=== PATIENT | female | born 1990 | race American Indian/Alaskan Native ===

== ENCOUNTER 2022-06-16 12:09 | Inpatient (IN) | payer OTHER ==
[2022-06-16] MEDS ORDERED: MAGNESIUM SULFATE 40GM/1000ML 40 GM/1,000 ML BAG IV SCH (14:00)
[2022-06-16] MEDS ORDERED: MAGNESIUM SULFATE 4 GM/100 ML BAG IV NR (14:00)
[2022-06-16] MEDS: BETAMET ACET/BETAMET NA PH 6 MG/ML INJ 5 ML MDV IM SCH (14:28)
[2022-06-16] MEDS: LACTATED RINGERS 1,000 ML IV SCH (14:44)
[2022-06-16] MEDS ORDERED: hydrALAZINE 20 MG/1 ML INJ IV PRN (15:00)
[2022-06-16] MEDS ORDERED: DOCUSATE SODIUM 100 MG CAP PO PRN (17:24)
[2022-06-16] MEDS ORDERED: ACETAMINOPHEN 325 MG TAB PO PRN (17:24)
--- NOTE | 2022-06-16 17:32 | History and Physical Report ---
History of Present Illness Date of examination: 06/16/22 Date of admission: 06/16/22 12:47 Chief complaint: WALDO 09/15/22 @ 27 weeks gestation was sent From [facility] with severe growth restriction, obesity and elevated BP. BPP 4/8, LUCHO 1.6. HX of + AFP. History of present illness: See CC Past History Past Medical History: other (obesity) Past Surgical History: no surgical history Family/Genetic History: none - Obstetrical History Expected Date of Delivery: 09/15/22 Actual Gestation: 27 Week(s) 0 Day(s) : 1 Para: 0 Medications and Allergies Allergies Allergy/AdvReac Type Severity Reaction Status Date / Time No Known Allergies Allergy Verified 06/16/22 13:37 Home Medications Medication Instructions Recorded Confirmed Last Taken Type Aspirin 81 mg PO DAILY 06/16/22 06/16/22 06/16/22 History 81 MG Tablet 1 tab PO DAILY 06/16/22 06/16/22 06/16/22 History 1 TAB Vitamin D3 1 tab PO DAILY 06/16/22 06/16/22 Unknown History Active Meds: Active Medications Betamethasone Acet/Betameth SodPhos (Betamet Acet/Betamet Na Ph 6 Mg/Ml Inj 5 Ml Mdv) 12 mg IM Q24HR [facility] Last Admin: 06/16/22 14:28 Dose: 12 mg Hydralazine HCl (Hydralazine 20 Mg/1 Ml Inj) 5 mg IV Q30MIN PRN PRN Reason: Hypertension Lactated Ringer's (Lactated Ringers) 1,000 mls @ 75 mls/hr IV DIRECT DARY Last Admin: 06/16/22 14:44 Dose: 75 mls/hr Magnesium Sulfate (Magnesium Sulfate 40gm/1000ml) 40 gm in 1,000 mls @ 50 mls/hr IV DIRECT DARY Last Admin: 06/16/22 15:16 Dose: 2 gm/hr, 50 mls/hr Labetalol HCl (Labetalol 200 Mg Tab) 200 mg PO TID DARY Last Admin: 06/16/22 15:31 Dose: 200 mg Review of Systems All systems: negative - Vital Signs Vital signs: Vital Signs Pulse BP Pulse Ox 75 143/81 93 06/16/22 13:16 06/16/22 13:16 06/16/22 13:16 Temp Pulse Resp BP Pulse Ox 98.3 F 78 20 148/82 98 06/16/22 13:17 06/16/22 17:21 06/16/22 16:42 06/16/22 16:59 06/16/22 17:21 - Physical Exam Breasts: Positive: deferred Cardiovascular: Regular rate Lungs: Positive: Clear to auscultation Abdomen: Positive: soft Genitourinary (Female): Positive: normal external genitalia Vulva: both: normal Vagina: Positive: normal moisture Uterus: Positive: enlarged Anus/Rectum: Positive: normal perianal skin Extremities: Positive: normal Deep Tendon Reflex Grade: Normal +2 - Obstetrical Uterine Contraction Monitor Mode: External Uterine Contraction Pattern: Absent Uterine Contraction Intensity: Mild Results All other labs normal. Assessment and Plan A: 27 weeks with Oligohydramnios, Severe IUGR Gestational Hypertension/Preeclampsia Elevated MSAFP Morbid obesity P: Repeat BPP and Cord dopplers 24 hr urine Magnesium BMZ
[2022-06-16 18:53] LABS: Basophils # (Auto) 0.1 K/mm3 (0.0-0.1); Basophils % (Auto) 1.4 % (0.0-1.8); Eosinophils # (Auto) 0.1 K/mm3 (0.0-0.4); Eosinophils % (Auto) 1.8 % (0.0-4.3); Hematocrit 35.6 % (30.3-42.9); Lymphocytes # (Auto) 2.2 K/mm3 (1.2-5.4); Lymphocytes % (Auto) 30.4 % (13.4-35.0); Mean Corpuscular HGB Conc 34 % (30-34); Mean Corpuscular Volume 98 fl (79-97); Monocytes # (Auto) 0.6 K/mm3 (0.0-0.8); Monocytes % (Auto) 8.3 % (0.0-7.3); Platelet Count 262 K/mm3 (140-440); Red Blood Count 3.63 M/mm3 (3.65-5.03); Red Cell Distribution Width 11.9 % (13.2-15.2)
[2022-06-16 19:23] LABS: Alanine Aminotransferase 46 units/L (7-56); Blood Urea Nitrogen 4 mg/dL (7-17); Calcium 9.8 mg/dL (8.4-10.2); Hemolysis Index 11
[2022-06-16 19:30] LABS: BUN/Creatinine Ratio 8
--- NOTE | 2022-06-16 19:38 | Ultrasound Report ---
ULTRASOUND BIOPHYSICAL PROFILE INDICATION / CLINICAL INFORMATION: well-being. COMPARISON: None available. FINDINGS: BREATHING MOVEMENT = 2 GROSS BODY MOVEMENT = 2 TONE = 2 QUALITATIVE AMNIOTIC FLUID VOLUME = 2 TOTAL BIOPHYSICAL SCORE = 06/05 PRESENTATION: Cephalic. HEART RATE (beats per minute): 129 IMPRESSION: 1. biophysical profile = 06/05 Signer Name: Keshawn Cleveland MD Signed: 06/16/2022 7:33 PM Workstation Name: [id number]
[2022-06-17] MEDS: LACTATED RINGERS 1,000 ML IV SCH ×4 (03:35→23:49)
[2022-06-17] MEDS: PRENATAL VIT27-FE FUMARATE-FOLIC ACID VIT TAB PO SCH (09:10)
[2022-06-17] MEDS: BETAMET ACET/BETAMET NA PH 6 MG/ML INJ 5 ML MDV IM SCH (15:27)
--- NOTE | 2022-06-17 16:26 | Progress Note ---
Assessment and Plan A: Severe IUGR and Oligohydramnious @ 27.1 weeks Elevated MSAFP Breech presentation P: S/P Magnesium for neuro protection S/P BMZ 24hr will be completed at [address] Martinez called and plan of care discussed Will repeat BPP and doppler studies in am Continuous monitoring NICU consult Deliver if indicated Subjective Date of service: 06/17/22 Principal diagnosis: Severe IUGR, Oligohydramnious Interval history: S: No complaints of leaking fluid, reports good movement Objective - Constitutional Vitals: Vital Signs - 12hr 06/17/22 06/17/22 06/17/22 04:27 04:32 04:37 Temperature Pulse Rate 80 84 85 Respiratory Rate Blood Pressure 133/79 O2 Sat by Pulse 98 98 100 Oximetry O2 Sat by Pulse Oximetry [ Bilateral] 06/17/22 06/17/22 06/17/22 04:42 04:47 04:52 Temperature Pulse Rate 78 79 83 Respiratory Rate Blood Pressure O2 Sat by Pulse 98 98 97 Oximetry O2 Sat by Pulse Oximetry [ Bilateral] 06/17/22 06/17/22 06/17/22 04:57 04:59 05:02 Temperature Pulse Rate 83 90 83 Respiratory Rate Blood Pressure O2 Sat by Pulse 97 94 96 Oximetry O2 Sat by Pulse Oximetry [ Bilateral] 06/17/22 06/17/22 06/17/22 05:04 05:07 05:12 Temperature Pulse Rate 91 H 96 H 95 H Respiratory Rate Blood Pressure 139/84 O2 Sat by Pulse 93 100 98 Oximetry O2 Sat by Pulse Oximetry [ Bilateral] 06/17/22 06/17/22 06/17/22 05:17 05:22 05:27 Temperature Pulse Rate 93 H 79 83 Respiratory Rate Blood Pressure O2 Sat by Pulse 99 99 98 Oximetry O2 Sat by Pulse Oximetry [ Bilateral] 06/17/22 06/17/22 06/17/22 05:32 05:37 05:42 Temperature Pulse Rate 82 80 85 Respiratory Rate Blood Pressure 141/83 O2 Sat by Pulse 98 100 98 Oximetry O2 Sat by Pulse Oximetry [ Bilateral] 06/17/22 06/17/22 06/17/22 05:47 05:52 05:57 Temperature Pulse Rate 94 H 87 88 Respiratory Rate Blood Pressure O2 Sat by Pulse 99 98 98 Oximetry O2 Sat by Pulse Oximetry [ Bilateral] 06/17/22 06/17/22 06/17/22 06:02 06:07 06:12 Temperature Pulse Rate 90 90 92 H Respiratory Rate Blood Pressure 136/88 O2 Sat by Pulse 99 98 99 Oximetry O2 Sat by Pulse Oximetry [ Bilateral] 06/17/22 06/17/22 06/17/22 06:17 06:22 06:27 Temperature Pulse Rate 82 79 79 Respiratory Rate Blood Pressure O2 Sat by Pulse 98 98 99 Oximetry O2 Sat by Pulse Oximetry [ Bilateral] 06/17/22 06/17/22 06/17/22 06:32 06:37 06:42 Temperature Pulse Rate 76 79 82 Respiratory Rate Blood Pressure 131/72 O2 Sat by Pulse 97 97 98 Oximetry O2 Sat by Pulse Oximetry [ Bilateral] 06/17/22 06/17/22 06/17/22 06:47 06:51 06:52 Temperature Pulse Rate 80 87 79 Respiratory Rate Blood Pressure O2 Sat by Pulse 96 92 99 Oximetry O2 Sat by Pulse Oximetry [ Bilateral] 06/17/22 06/17/22 06/17/22 06:57 07:02 07:07 Temperature Pulse Rate 83 85 75 Respiratory Rate Blood Pressure 138/70 O2 Sat by Pulse 97 98 97 Oximetry O2 Sat by Pulse Oximetry [ Bilateral] 06/17/22 06/17/22 06/17/22 07:12 07:17 07:22 Temperature Pulse Rate 80 78 95 H Respiratory Rate Blood Pressure O2 Sat by Pulse 98 97 97 Oximetry O2 Sat by Pulse Oximetry [ Bilateral] 06/17/22 06/17/22 06/17/22 07:26 07:27 07:30 Temperature 98.6 F Pulse Rate 87 96 H Respiratory 20 Rate Blood Pressure O2 Sat by Pulse 94 100 Oximetry O2 Sat by Pulse 98 Oximetry [ Bilateral] 06/17/22 06/17/22 06/17/22 07:32 07:37 07:42 Temperature Pulse Rate 83 78 86 Respiratory Rate Blood Pressure O2 Sat by Pulse 99 98 98 Oximetry O2 Sat by Pulse Oximetry [ Bilateral] 06/17/22 06/17/22 06/17/22 07:47 07:52 07:57 Temperature Pulse Rate 88 79 90 Respiratory Rate Blood Pressure O2 Sat by Pulse 100 99 99 Oximetry O2 Sat by Pulse Oximetry [ Bilateral] 06/17/22 06/17/22 06/17/22 08:02 08:07 08:12 Temperature Pulse Rate 95 H 90 83 Respiratory Rate Blood Pressure O2 Sat by Pulse 98 99 100 Oximetry O2 Sat by Pulse Oximetry [ Bilateral] 06/17/22 06/17/22 06/17/22 08:17 08:22 08:27 Temperature Pulse Rate 92 H 80 82 Respiratory Rate Blood Pressure O2 Sat by Pulse 99 97 99 Oximetry O2 Sat by Pulse Oximetry [ Bilateral] 06/17/22 06/17/22 06/17/22 08:28 08:32 08:37 Temperature Pulse Rate 84 85 88 Respiratory Rate Blood Pressure 135/63 O2 Sat by Pulse 98 99 Oximetry O2 Sat by Pulse Oximetry [ Bilateral] 06/17/22 06/17/22 06/17/22 08:42 08:47 08:52 Temperature Pulse Rate 80 92 H 88 Respiratory Rate Blood Pressure O2 Sat by Pulse 98 99 98 Oximetry O2 Sat by Pulse Oximetry [ Bilateral] 06/17/22 06/17/22 06/17/22 08:57 09:02 09:07 Temperature Pulse Rate 90 87 90 Respiratory Rate Blood Pressure O2 Sat by Pulse 100 100 99 Oximetry O2 Sat by Pulse Oximetry [ Bilateral] 06/17/22 06/17/22 06/17/22 09:12 09:17 09:20 Temperature Pulse Rate 104 H 94 H 83 Respiratory Rate Blood Pressure O2 Sat by Pulse 100 100 94 Oximetry O2 Sat by Pulse Oximetry [ Bilateral] 06/17/22 06/17/22 06/17/22 09:22 09:27 09:28 Temperature Pulse Rate 87 82 76 Respiratory Rate Blood Pressure 139/82 O2 Sat by Pulse 98 97 Oximetry O2 Sat by Pulse Oximetry [ Bilateral] 06/17/22 06/17/22 06/17/22 09:32 09:37 09:39 Temperature Pulse Rate 81 87 85 Respiratory Rate Blood Pressure O2 Sat by Pulse 100 99 93 Oximetry O2 Sat by Pulse Oximetry [ Bilateral] 06/17/22 06/17/22 06/17/22 09:42 09:47 09:52 Temperature Pulse Rate 90 90 97 H Respiratory Rate Blood Pressure O2 Sat by Pulse 99 97 99 Oximetry O2 Sat by Pulse Oximetry [ Bilateral] 06/17/22 06/17/22 06/17/22 09:57 10:02 10:07 Temperature Pulse Rate 96 H 89 90 Respiratory Rate Blood Pressure O2 Sat by Pulse 99 99 99 Oximetry O2 Sat by Pulse Oximetry [ Bilateral] 06/17/22 06/17/22 06/17/22 10:12 10:17 10:22 Temperature Pulse Rate 91 H 87 86 Respiratory Rate Blood Pressure O2 Sat by Pulse 99 100 98 Oximetry O2 Sat by Pulse Oximetry [ Bilateral] 06/17/22 06/17/22 06/17/22 10:27 10:32 10:37 Temperature Pulse Rate 97 H 81 86 Respiratory Rate Blood Pressure 124/85 O2 Sat by Pulse 99 99 99 Oximetry O2 Sat by Pulse Oximetry [ Bilateral] 06/17/22 06/17/22 06/17/22 10:42 10:47 10:52 Temperature Pulse Rate 83 81 86 Respiratory Rate Blood Pressure O2 Sat by Pulse 98 98 96 Oximetry O2 Sat by Pulse Oximetry [ Bilateral] 06/17/22 06/17/22 06/17/22 10:57 11:02 11:07 Temperature Pulse Rate 83 82 87 Respiratory Rate Blood Pressure O2 Sat by Pulse 99 98 99 Oximetry O2 Sat by Pulse Oximetry [ Bilateral] 06/17/22 06/17/22 06/17/22 11:12 11:17 11:22 Temperature Pulse Rate 85 87 84 Respiratory Rate Blood Pressure O2 Sat by Pulse 99 98 98 Oximetry O2 Sat by Pulse Oximetry [ Bilateral] 06/17/22 06/17/22 06/17/22 11:27 11:28 11:32 Temperature Pulse Rate 86 82 86 Respiratory Rate Blood Pressure 126/69 O2 Sat by Pulse 98 98 Oximetry O2 Sat by Pulse Oximetry [ Bilateral] 06/17/22 06/17/22 06/17/22 11:37 11:42 11:47 Temperature Pulse Rate 87 84 83 Respiratory Rate Blood Pressure O2 Sat by Pulse 97 97 97 Oximetry O2 Sat by Pulse Oximetry [ Bilateral] 06/17/22 06/17/22 06/17/22 11:52 11:57 12:02 Temperature Pulse Rate 91 H 83 85 Respiratory Rate Blood Pressure O2 Sat by Pulse 99 96 99 Oximetry O2 Sat by Pulse Oximetry [ Bilateral] 06/17/22 06/17/22 06/17/22 12:06 12:07 12:12 Temperature Pulse Rate 93 H 85 85 Respiratory Rate Blood Pressure O2 Sat by Pulse 93 94 95 Oximetry O2 Sat by Pulse Oximetry [ Bilateral] 06/17/22 06/17/22 06/17/22 12:16 12:17 12:22 Temperature Pulse Rate 85 83 84 Respiratory Rate Blood Pressure O2 Sat by Pulse 94 98 98 Oximetry O2 Sat by Pulse Oximetry [ Bilateral] 06/17/22 06/17/22 06/17/22 12:25 12:27 12:28 Temperature Pulse Rate 82 83 79 Respiratory Rate Blood Pressure 127/63 O2 Sat by Pulse 94 96 Oximetry O2 Sat by Pulse Oximetry [ Bilateral] 06/17/22 06/17/22 06/17/22 12:31 12:32 12:37 Temperature Pulse Rate 81 82 82 Respiratory Rate Blood Pressure O2 Sat by Pulse 94 99 94 Oximetry O2 Sat by Pulse Oximetry [ Bilateral] 06/17/22 06/17/22 06/17/22 12:42 12:47 12:52 Temperature Pulse Rate 79 84 78 Respiratory Rate Blood Pressure O2 Sat by Pulse 97 98 98 Oximetry O2 Sat by Pulse Oximetry [ Bilateral] 06/17/22 06/17/22 06/17/22 12:57 13:02 13:07 Temperature Pulse Rate 79 82 83 Respiratory Rate Blood Pressure O2 Sat by Pulse 97 98 97 Oximetry O2 Sat by Pulse Oximetry [ Bilateral] 06/17/22 06/17/22 06/17/22 13:12 13:17 13:22 Temperature Pulse Rate 79 80 82 Respiratory Rate Blood Pressure O2 Sat by Pulse 96 99 97 Oximetry O2 Sat by Pulse Oximetry [ Bilateral] 06/17/22 06/17/22 06/17/22 13:27 13:28 13:32 Temperature Pulse Rate 85 85 81 Respiratory Rate Blood Pressure 130/72 O2 Sat by Pulse 99 97 Oximetry O2 Sat by Pulse Oximetry [ Bilateral] 06/17/22 06/17/22 06/17/22 13:37 13:42 13:47 Temperature Pulse Rate 80 80 78 Respiratory Rate Blood Pressure O2 Sat by Pulse 100 98 98 Oximetry O2 Sat by Pulse Oximetry [ Bilateral] 06/17/22 06/17/22 06/17/22 13:52 13:53 13:57 Temperature Pulse Rate 83 89 84 Respiratory Rate Blood Pressure O2 Sat by Pulse 98 89 97 Oximetry O2 Sat by Pulse Oximetry [ Bilateral] 06/17/22 06/17/22 06/17/22 13:58 14:02 14:05 Temperature Pulse Rate 81 88 82 Respiratory Rate Blood Pressure O2 Sat by Pulse 94 100 94 Oximetry O2 Sat by Pulse Oximetry [ Bilateral] 06/17/22 06/17/22 06/17/22 14:07 14:12 14:17 Temperature Pulse Rate 80 81 81 Respiratory Rate Blood Pressure O2 Sat by Pulse 98 99 97 Oximetry O2 Sat by Pulse Oximetry [ Bilateral] 06/17/22 06/17/22 06/17/22 14:20 14:22 14:27 Temperature Pulse Rate 85 84 84 Respiratory Rate Blood Pressure O2 Sat by Pulse 93 100 99 Oximetry O2 Sat by Pulse Oximetry [ Bilateral] 06/17/22 06/17/22 06/17/22 14:29 14:32 14:37 Temperature Pulse Rate 82 82 83 Respiratory Rate Blood Pressure 132/71 O2 Sat by Pulse 98 98 Oximetry O2 Sat by Pulse Oximetry [ Bilateral] 06/17/22 06/17/22 06/17/22 14:42 14:47 14:52 Temperature Pulse Rate 85 83 81 Respiratory Rate Blood Pressure O2 Sat by Pulse 98 98 99 Oximetry O2 Sat by Pulse Oximetry [ Bilateral] 06/17/22 06/17/22 06/17/22 14:57 15:21 15:26 Temperature Pulse Rate 88 82 79 Respiratory Rate Blood Pressure O2 Sat by Pulse 98 100 99 Oximetry O2 Sat by Pulse Oximetry [ Bilateral] 06/17/22 06/17/22 06/17/22 15:29 15:31 15:32 Temperature 98.4 F Pulse Rate 86 78 Respiratory 18 Rate Blood Pressure 126/60 O2 Sat by Pulse 99 Oximetry O2 Sat by Pulse Oximetry [ Bilateral] 06/17/22 06/17/22 06/17/22 15:36 15:41 15:46 Temperature Pulse Rate 97 H 87 99 H Respiratory Rate Blood Pressure O2 Sat by Pulse 98 99 99 Oximetry O2 Sat by Pulse Oximetry [ Bilateral] 06/17/22 06/17/22 06/17/22 15:51 15:56 16:01 Temperature Pulse Rate 82 93 H 100 H Respiratory Rate Blood Pressure O2 Sat by Pulse 100 99 98 Oximetry O2 Sat by Pulse Oximetry [ Bilateral] 06/17/22 06/17/22 06/17/22 16:06 16:11 16:16 Temperature Pulse Rate 95 H 91 H 93 H Respiratory Rate Blood Pressure O2 Sat by Pulse 100 98 99 Oximetry O2 Sat by Pulse Oximetry [ Bilateral] 06/17/22 16:21 Temperature Pulse Rate 91 H Respiratory Rate Blood Pressure O2 Sat by Pulse 98 Oximetry O2 Sat by Pulse Oximetry [ Bilateral] General appearance: Present: no acute distress - Cardiovascular Rhythm: regular - Genitourinary Female genitourinary: deferred - Labs CBC & Chem 7: 06/16/22 14:00 06/16/22 14:00 Labs: Abnormal lab results 06/16/22 06/16/22 06/17/22 Range/Units 14:00 14:00 03:55 RBC 3.63 L (3.65-5.03) M/mm3 MCV 98 H (79-97) fl MCH 33 H (28-32) pg RDW 11.9 L (13.2-15.2) % Potter % (Auto) 8.3 H (0.0-7.3) % BUN 4 L (7-17) mg/dL Creatinine 0.5 L (0.6-1.2) mg/dL Glucose 60 L (65-100) mg/dL Magnesium 4.70 H (1.7-2.3) mg/dL Medications & Allergies - Medications Allergies/Adverse Reactions: Allergies No Known Allergies Allergy (Verified 06/16/22 13:37) Home Medications: Home Medications Medication Instructions Recorded Confirmed Last Taken Type Aspirin 81 mg PO DAILY 06/16/22 06/16/22 06/16/22 History 81 MG Tablet 1 tab PO DAILY 06/16/22 06/16/22 06/16/22 History 1 TAB Vitamin D3 1 tab PO DAILY 06/16/22 06/16/22 Unknown History Active Medications: Generic Name Dose Route Start Last Admin Trade Name Marnie PRN Reason Stop Dose Admin Acetaminophen 650 mg 06/16/22 17:24 06/17/22 09:09 Acetaminophen 325 Mg Tab PO 650 mg Q4H PRN Administration Pain MILD(1-3)/Fever >100.5/MILLIGAN Betamethasone Acet/Betameth SodPhos 12 mg 06/16/22 14:00 06/17/22 15:27 Betamet Acet/Betamet Na Ph 6 Mg/Ml Inj 5 Ml Mdv IM 12 mg Q24HR DARY Administration Docusate Sodium 100 mg 06/16/22 17:24 Docusate Sodium 100 Mg Cap PO Q12H PRN Constipation Hydralazine HCl 5 mg 06/16/22 15:00 Hydralazine 20 Mg/1 Ml Inj IV Q30MIN PRN Hypertension Lactated Ringer's 1,000 mls @ 75 mls/hr 06/16/22 14:00 06/17/22 16:13 Lactated Ringers IV 75 mls/hr DIRECT DARY Administration Magnesium Sulfate 40 gm in 1,000 mls @ 50 mls/hr 06/16/22 14:00 06/16/22 15:16 Magnesium Sulfate 40gm/1000ml IV 2 gm/hr DIRECT DARY 50 mls/hr Administration 2 GM/HR Labetalol HCl 200 mg 06/16/22 14:55 06/17/22 09:10 Labetalol 200 Mg Tab PO 200 mg TID DARY Administration Multivitamins/Iron/Calcium 1 each 06/17/22 10:00 06/17/22 09:10 [id number] Fumarate-Folic Acid Vit Tab PO 1 each QDAY DARY Administration
[2022-06-18] MEDS: PRENATAL VIT27-FE FUMARATE-FOLIC ACID VIT TAB PO SCH (10:03)
--- NOTE | 2022-06-18 10:15 | Ultrasound Report ---
. ULTRASOUND BIOPHYSICAL PROFILE INDICATION / CLINICAL INFORMATION: Oligohydramnios. COMPARISON: 06/16/2022 FINDINGS: BREATHING MOVEMENT = 2 GROSS BODY MOVEMENT = 2 TONE = 2 QUALITATIVE AMNIOTIC FLUID VOLUME = 2 TOTAL BIOPHYSICAL SCORE = 06/05 PRESENTATION: Breech. HEART RATE (beats per minute): 135 IMPRESSION: 1. biophysical profile = 06/05 Signer Name: Matthew Verdugo MD Signed: 06/18/2022 10:10 AM Workstation Name: [id number]
--- NOTE | 2022-06-18 11:19 | Progress Note ---
Assessment and Plan A: Currently 27.2wks gestation IUGR, Oligohydramnious, Elevated MSAFP s/p magnesium sulfate/betamethasone, 24hr (300) P: Discussed patient Dr. Martinez repeat BPP/LUCHO/ doppler today Continuous FM per [facility] NICU consult Delv as indicated Subjective - Subjective Date of service: 06/18/22 (0745) Principal diagnosis: Severe IUGR, Oligohydramnious Patient reports: loss of fluid (denies), movement normal Objective - Vital Signs Vital Signs: Vital Signs - 12hr 06/17/22 06/17/22 06/17/22 23:21 23:26 23:31 Temperature Pulse Rate 89 89 89 Respiratory Rate Blood Pressure Blood Pressure [Left] O2 Sat by Pulse 96 97 96 Oximetry O2 Sat by Pulse Oximetry [ Bilateral] 06/17/22 06/17/22 06/17/22 23:36 23:41 23:46 Temperature Pulse Rate 93 H 93 H 86 Respiratory Rate Blood Pressure Blood Pressure [Left] O2 Sat by Pulse 99 96 97 Oximetry O2 Sat by Pulse Oximetry [ Bilateral] 06/17/22 06/17/22 06/17/22 23:51 23:52 23:56 Temperature Pulse Rate 105 H 88 79 Respiratory Rate Blood Pressure Blood Pressure [Left] O2 Sat by Pulse 97 93 96 Oximetry O2 Sat by Pulse Oximetry [ Bilateral] 06/18/22 06/18/22 06/18/22 00:01 00:05 00:06 Temperature Pulse Rate 87 88 78 Respiratory Rate Blood Pressure Blood Pressure [Left] O2 Sat by Pulse 97 92 99 Oximetry O2 Sat by Pulse Oximetry [ Bilateral] 06/18/22 06/18/22 06/18/22 00:11 00:13 00:16 Temperature Pulse Rate 80 92 H 86 Respiratory Rate Blood Pressure Blood Pressure [Left] O2 Sat by Pulse 95 94 95 Oximetry O2 Sat by Pulse Oximetry [ Bilateral] 06/18/22 06/18/22 06/18/22 00:20 00:21 00:25 Temperature Pulse Rate 86 91 H 99 H Respiratory Rate Blood Pressure Blood Pressure [Left] O2 Sat by Pulse 94 98 94 Oximetry O2 Sat by Pulse Oximetry [ Bilateral] 06/18/22 06/18/22 06/18/22 00:26 00:31 00:33 Temperature Pulse Rate 80 84 91 H Respiratory Rate Blood Pressure Blood Pressure [Left] O2 Sat by Pulse 99 98 94 Oximetry O2 Sat by Pulse Oximetry [ Bilateral] 06/18/22 06/18/22 06/18/22 00:36 00:39 00:41 Temperature Pulse Rate 91 H 82 78 Respiratory Rate Blood Pressure Blood Pressure [Left] O2 Sat by Pulse 97 93 99 Oximetry O2 Sat by Pulse Oximetry [ Bilateral] 06/18/22 06/18/22 06/18/22 00:45 00:46 00:50 Temperature Pulse Rate 81 79 82 Respiratory Rate Blood Pressure Blood Pressure [Left] O2 Sat by Pulse 92 99 94 Oximetry O2 Sat by Pulse Oximetry [ Bilateral] 06/18/22 06/18/22 06/18/22 00:51 00:55 00:56 Temperature Pulse Rate 82 93 H 92 H Respiratory Rate Blood Pressure Blood Pressure [Left] O2 Sat by Pulse 99 93 92 Oximetry O2 Sat by Pulse Oximetry [ Bilateral] 06/18/22 06/18/22 06/18/22 01:01 01:06 01:11 Temperature Pulse Rate 84 82 78 Respiratory Rate Blood Pressure Blood Pressure [Left] O2 Sat by Pulse 94 96 97 Oximetry O2 Sat by Pulse Oximetry [ Bilateral] 06/18/22 06/18/22 06/18/22 01:16 01:21 01:26 Temperature Pulse Rate 80 82 93 H Respiratory Rate Blood Pressure Blood Pressure [Left] O2 Sat by Pulse 96 96 93 Oximetry O2 Sat by Pulse Oximetry [ Bilateral] 06/18/22 06/18/22 06/18/22 01:31 01:36 01:37 Temperature Pulse Rate 93 H 81 78 Respiratory Rate Blood Pressure Blood Pressure [Left] O2 Sat by Pulse 96 99 92 Oximetry O2 Sat by Pulse Oximetry [ Bilateral] 06/18/22 06/18/22 06/18/22 01:41 01:43 01:46 Temperature Pulse Rate 81 91 H 79 Respiratory Rate Blood Pressure Blood Pressure [Left] O2 Sat by Pulse 96 94 99 Oximetry O2 Sat by Pulse Oximetry [ Bilateral] 06/18/22 06/18/22 06/18/22 01:51 02:15 02:20 Temperature Pulse Rate 77 70 81 Respiratory Rate Blood Pressure Blood Pressure [Left] O2 Sat by Pulse 98 98 98 Oximetry O2 Sat by Pulse Oximetry [ Bilateral] 08/21/22 08/21/22 08/21/22 02:25 02:30 02:35 Temperature Pulse Rate 80 76 76 Respiratory Rate Blood Pressure Blood Pressure [Left] O2 Sat by Pulse 98 98 98 Oximetry O2 Sat by Pulse Oximetry [ Bilateral] 06/18/22 06/18/22 06/18/22 02:40 02:45 02:50 Temperature Pulse Rate 77 78 74 Respiratory Rate Blood Pressure Blood Pressure [Left] O2 Sat by Pulse 99 98 99 Oximetry O2 Sat by Pulse Oximetry [ Bilateral] 06/18/22 06/18/22 06/18/22 02:55 03:00 03:05 Temperature Pulse Rate 74 74 78 Respiratory Rate Blood Pressure Blood Pressure [Left] O2 Sat by Pulse 99 98 98 Oximetry O2 Sat by Pulse Oximetry [ Bilateral] 06/18/22 06/18/22 06/18/22 03:10 03:15 03:20 Temperature 98.9 F Pulse Rate 75 82 84 Respiratory 18 Rate Blood Pressure Blood Pressure 134/70 [Left] O2 Sat by Pulse 97 98 98 Oximetry O2 Sat by Pulse Oximetry [ Bilateral] 06/18/22 06/18/22 06/18/22 05:20 05:25 07:44 Temperature 98.4 F Pulse Rate 77 78 83 Respiratory 12 Rate Blood Pressure Blood Pressure 133/73 [Left] O2 Sat by Pulse 98 98 97 Oximetry O2 Sat by Pulse 98 Oximetry [ Bilateral] 06/18/22 06/18/22 06/18/22 07:45 07:46 07:51 Temperature Pulse Rate 75 85 77 Respiratory Rate Blood Pressure 133/73 Blood Pressure [Left] O2 Sat by Pulse 98 99 Oximetry O2 Sat by Pulse Oximetry [ Bilateral] 06/18/22 06/18/22 06/18/22 07:56 08:01 08:06 Temperature Pulse Rate 78 76 76 Respiratory Rate Blood Pressure Blood Pressure [Left] O2 Sat by Pulse 98 98 99 Oximetry O2 Sat by Pulse Oximetry [ Bilateral] 06/18/22 06/18/22 06/18/22 08:11 08:16 08:21 Temperature Pulse Rate 83 72 72 Respiratory Rate Blood Pressure Blood Pressure [Left] O2 Sat by Pulse 98 97 97 Oximetry O2 Sat by Pulse Oximetry [ Bilateral] 06/18/22 06/18/22 06/18/22 08:24 08:26 08:29 Temperature Pulse Rate 74 76 73 Respiratory Rate Blood Pressure 139/72 Blood Pressure [Left] O2 Sat by Pulse 90 97 Oximetry O2 Sat by Pulse Oximetry [ Bilateral] 06/18/22 06/18/22 06/18/22 08:31 08:36 08:41 Temperature Pulse Rate 96 H 73 72 Respiratory Rate Blood Pressure Blood Pressure [Left] O2 Sat by Pulse 98 96 98 Oximetry O2 Sat by Pulse Oximetry [ Bilateral] 06/18/22 06/18/22 06/18/22 08:46 08:47 08:51 Temperature Pulse Rate 75 87 71 Respiratory Rate Blood Pressure 139/81 Blood Pressure [Left] O2 Sat by Pulse 98 98 Oximetry O2 Sat by Pulse Oximetry [ Bilateral] 06/18/22 06/18/22 06/18/22 08:56 09:01 09:05 Temperature Pulse Rate 70 75 77 Respiratory Rate Blood Pressure Blood Pressure [Left] O2 Sat by Pulse 96 98 94 Oximetry O2 Sat by Pulse Oximetry [ Bilateral] 06/18/22 06/18/22 06/18/22 09:06 09:11 09:16 Temperature Pulse Rate 72 74 68 Respiratory Rate Blood Pressure Blood Pressure [Left] O2 Sat by Pulse 99 99 99 Oximetry O2 Sat by Pulse Oximetry [ Bilateral] 06/18/22 06/18/22 06/18/22 09:21 09:26 09:28 Temperature Pulse Rate 77 75 78 Respiratory Rate Blood Pressure 128/66 Blood Pressure [Left] O2 Sat by Pulse 98 99 Oximetry O2 Sat by Pulse Oximetry [ Bilateral] 06/18/22 06/18/22 06/18/22 09:31 09:36 09:41 Temperature Pulse Rate 70 68 80 Respiratory Rate Blood Pressure Blood Pressure [Left] O2 Sat by Pulse 99 99 97 Oximetry O2 Sat by Pulse Oximetry [ Bilateral] 06/18/22 06/18/22 06/18/22 09:46 09:51 10:36 Temperature Pulse Rate 81 84 Respiratory Rate Blood Pressure Blood Pressure [Left] O2 Sat by Pulse 98 98 94 Oximetry O2 Sat by Pulse Oximetry [ Bilateral] 06/18/22 06/18/22 06/18/22 10:37 10:42 10:46 Temperature Pulse Rate 96 H 94 H 80 Respiratory Rate Blood Pressure Blood Pressure [Left] O2 Sat by Pulse 98 98 92 Oximetry O2 Sat by Pulse Oximetry [ Bilateral] 06/18/22 06/18/22 06/18/22 10:47 10:52 10:57 Temperature Pulse Rate 74 75 81 Respiratory Rate Blood Pressure Blood Pressure [Left] O2 Sat by Pulse 99 99 98 Oximetry O2 Sat by Pulse Oximetry [ Bilateral] 06/18/22 06/18/22 06/18/22 11:02 11:03 11:07 Temperature Pulse Rate 73 72 77 Respiratory Rate Blood Pressure Blood Pressure [Left] O2 Sat by Pulse 98 94 99 Oximetry O2 Sat by Pulse Oximetry [ Bilateral] 06/18/22 06/18/22 11:12 11:17 Temperature Pulse Rate 78 80 Respiratory Rate Blood Pressure Blood Pressure [Left] O2 Sat by Pulse 99 98 Oximetry O2 Sat by Pulse Oximetry [ Bilateral] - Exam Breasts: deferred Cardiovascular: Regular rate Lungs: Clear to auscultation Abdomen: Present: normal appearance, soft Uterus: Present: normal (enlarge) FHR: category 1 Uterine Contraction Monitor Mode: External Uterine Contraction Pattern: Absent Extremities: normal Deep Tendon Reflex Grade: Normal +2 - Labs Labs: Abnormal Labs 06/16/22 06/16/22 06/16/22 14:00 14:00 16:42 RBC 3.63 L MCV 98 H MCH 33 H RDW 11.9 L [place] % (Auto) 8.3 H BUN 4 L Creatinine 0.5 L Glucose 60 L Magnesium Ur Total Protein 24 Hr 301.00 H 06/17/22 03:55 RBC MCV MCH RDW [place] % (Auto) BUN Creatinine Glucose Magnesium 4.70 H Ur Total Protein 24 Hr Laboratory Results - last 24 hr 06/16/22 16:42 Urine Total Volume 4300 Ur Total Protein 24 Hr 301.00 H Urine Total Protein 7 - Results US- obstetric: pending (ob ultrasound LUCHO/BPP/ doppler)
[2022-06-18] MEDS: LACTATED RINGERS 1,000 ML IV SCH (12:51)
--- NOTE | 2022-06-18 13:16 | Ultrasound Report ---
ULTRASOUND OBSTETRIC LIMITED INDICATION / CLINICAL INFORMATION: IUGR, OLIGOHYDRAMNIOS. Clinical Gestational Age (GA) in weeks, days: 27 weeks 2 days TECHNIQUE: Transabdominal. COMPARISON: 06/16/2022 FINDINGS: HEART RATE (beats per minute): 139 AMNIOTIC FLUID INDEX (cm) = 4.8 (normal = 7-24 cm) PRESENTATION: Breech. ADDITIONAL FINDINGS: None. IMPRESSION: Single live intrauterine . Findings of oligohydramnios with amniotic fluid index measuring 4 .8 cm. Signer Name: Merrill Bose MD Signed: 06/18/2022 1:11 PM Workstation Name: [id number]
[2022-06-18] MEDS: BETAMET ACET/BETAMET NA PH 6 MG/ML INJ 5 ML MDV IM SCH (15:19)
--- NOTE | 2022-06-18 19:21 | Event Note ---
Date: 06/18/22 (446) Re-evaluated patient, w/o complaints at this time. Baby on and off monitoring, no cx noted or felt by patient. Reviewed bpp/LUCHO with Dr. Martinez, informed still waiting on doppler ( morning Tech does not know how to perform, states next shift will do). fetus breech, LUCHO 4.8, BPP 06/05.
--- NOTE | 2022-06-18 19:57 | Consultation ---
History of Present Illness - Reason for Consult Consult date: 06/18/22 Possible premature delivery Requesting physician: RAJESH GASTELUM - History of Present Illness I was consulted by the Obs service for a consultation on the possibilities for Ms. Ahn, a primigravida, who is carrying a 26 week fetus and may be at risk of premature labor/surgical delivery. I met with her along with her nurse, and we together went over the the history, current status, current treatment options, and the prognosis for a 26 week premature . She was very emotional, and appropriately anxious about the prognosis of the fetus. We discussed (using non-medical words as far as possible) the following points: 1. Ms. Ahn's current medical records show oligohydramnios, pre-eclampsia, elevated MSAFP, and morbid obesity. These conditions increase the baby's risk, above that expected for the degree of prematurity, of breathing difficulties, SGA, and low or variable blood sugars at least in the first 72 hours. High MSAFP levels have been associated with neural tube defects, abdominal wall defects, and duodenal defects, but we did not emphasize these problems because the her abdominal ultrasound scans do not mention any such findings. 2. She emphasized that she is a pentecostalism person and would like to do everything possible for the baby. We discussed that if the labor/surgical delivery happens, every week is associated with a significant increase in survival. Even now, she should be very cautiously optimistic. We will be there at delivery, will intubate the infant and carry the to the NICU in a safe fashion, and then she will be free to visit anytime except possibly at staff changeover times. The baby will likely need multiple medicines to improve lung inflation, antibiotics, intravenous fluids, and possibly to maintain blood pressure. We will start feeding through a tube as soon as it looks safe. She will need support for many weeks and will need to be in the NICU. 3. She expressed concern about the risk of cerebral palsy. I conveyed to her two things: (a) that the risk of cerebral palsy is strongly associated with intraventricular hemorrhage, which occurs most often in the first 48-72 hours. We can get daily head ultrasounds, and if there are abnormalities, we can discuss various options, including that of withdrawal of care. (b) in many infants, the possibility of cerebral palsy cannot be predicted perfectly, but then we accept it and do the best we can in follow-up care. We are happy to provide further information as needed. Thank you giving us the opportunity to participate in her care. Jamin Omer MD Medications and Allergies Allergies Allergy/AdvReac Type Severity Reaction Status Date / Time No Known Allergies Allergy Verified 06/16/22 13:37 Home Medications Medication Instructions Recorded Confirmed Last Taken Type Aspirin 81 mg PO DAILY 06/16/22 06/16/22 06/16/22 History 81 MG Tablet 1 tab PO DAILY 06/16/22 06/16/22 06/16/22 History 1 TAB Vitamin D3 1 tab PO DAILY 06/16/22 06/16/22 Unknown History Active Meds: Active Medications Acetaminophen (Acetaminophen 325 Mg Tab) 650 mg PO Q4H PRN PRN Reason: Pain MILD(1-3)/Fever >100.5/MILLIGAN Last Admin: 06/17/22 09:09 Dose: 650 mg Betamethasone Acet/Betameth SodPhos (Betamet Acet/Betamet Na Ph 6 Mg/Ml Inj 5 Ml Mdv) 12 mg IM Q24HR [facility] Last Admin: 06/18/22 15:19 Dose: 12 mg Docusate Sodium (Docusate Sodium 100 Mg Cap) 100 mg PO Q12H PRN PRN Reason: Constipation Hydralazine HCl (Hydralazine 20 Mg/1 Ml Inj) 5 mg IV Q30MIN PRN PRN Reason: Hypertension Magnesium Sulfate (Magnesium Sulfate 40gm/1000ml) 40 gm in 1,000 mls @ 50 mls/hr IV DIRECT [place] Last Infusion: 06/17/22 16:10 Dose: Infused Lactated Ringer's (Lactated Ringers) 1,000 mls @ 80 mls/hr IV DIRECT [facility] Last Admin: 06/18/22 12:51 Dose: 80 mls/hr Labetalol HCl (Labetalol 200 Mg Tab) 200 mg PO TID [facility] Last Admin: 06/18/22 14:23 Dose: 200 mg Multivitamins/Iron/Calcium ( Umi99-Ey Fumarate-Folic Acid Vit Tab) 1 each PO QDAY [facility] Last Admin: 06/18/22 10:03 Dose: 1 each Exam - Constitutional Vitals: Temp Pulse Resp BP Pulse Ox 98.5 F 96 H 17 132/73 98 06/18/22 19:22 06/18/22 19:49 06/18/22 14:24 06/18/22 19:25 06/18/22 19:49 Results - Labs CBC & Chem 7: 06/16/22 14:00 06/16/22 14:00
--- NOTE | 2022-06-18 21:15 | Ultrasound Report ---
ULTRASOUND OB VELOCIMETRY UMBILICAL ARTERY HISTORY: Severe IUGR TECHNIQUE: Transabdominal ultrasound with color and spectral Doppler imaging COMPARISON: 06/18/2022 FINDINGS: 3 segments of the umbilical cord were evaluated. heart rate measures 155 bpm. There is absent e nd diastolic flow. Free loop pulsatility indices measure 1.95, 1.60, and 2.01 with average pulsatility index of 1.85. IMPRESSION: Absent end diastolic flow, suggestive of placental insufficiency. Signer Name: Matthew Verdugo MD Signed: 06/18/2022 9:10 PM Workstation Name: [id number]
[2022-06-19] MEDS: LACTATED RINGERS 1,000 ML IV SCH (02:38)
[2022-06-19] MEDS: PRENATAL VIT27-FE FUMARATE-FOLIC ACID VIT TAB PO SCH (10:47)
--- NOTE | 2022-06-19 13:35 | Progress Note ---
Assessment and Plan Severe IUGR with oligo, BPP 6/8, LUCHO 4.8 improved from admit LUCHO 1.8; S/P steroids and mag sulfate neuroprotection, and abnormal u/s with absent diastolic flow on dopplers, on 06/18/[address] Duffy with these new findings, and he recommends delivery via c/section 2. Pt told that she will need primary c/section later this evening 8hrs after her last meal per anesthesia 3. All questions encouraged and answered, will continue current EFM and delivery emergently if NRFHR Subjective Date of service: 06/19/22 Principal diagnosis: Severe IUGR, Oligohydramnious, absent end diastolic flow Interval history: pt denies headache or blurry vision, pt admits to LOF 1wk ago and no ROM plus done on admission. PT denies feeling contractions. Pt just ate hamburger for lunch.. Denies vag bleed, admits to movement. Objective - Constitutional Vitals: Vital Signs - 12hr 06/19/22 06/19/22 06/19/22 01:29 01:34 01:39 Temperature Pulse Rate 73 71 73 Respiratory Rate Blood Pressure Blood Pressure [Left] O2 Sat by Pulse 96 96 97 Oximetry O2 Sat by Pulse Oximetry [ Bilateral] 06/19/22 06/19/22 06/19/22 01:41 01:44 01:49 Temperature Pulse Rate 82 74 73 Respiratory Rate Blood Pressure Blood Pressure [Left] O2 Sat by Pulse 94 97 97 Oximetry O2 Sat by Pulse Oximetry [ Bilateral] 06/19/22 06/19/22 06/19/22 01:54 01:59 02:04 Temperature Pulse Rate 74 73 81 Respiratory Rate Blood Pressure Blood Pressure [Left] O2 Sat by Pulse 96 97 96 Oximetry O2 Sat by Pulse Oximetry [ Bilateral] 06/19/22 06/19/22 06/19/22 02:09 02:14 02:19 Temperature Pulse Rate 76 76 75 Respiratory Rate Blood Pressure Blood Pressure [Left] O2 Sat by Pulse 95 96 96 Oximetry O2 Sat by Pulse Oximetry [ Bilateral] 06/19/22 06/19/22 06/19/22 02:24 02:32 02:33 Temperature 98.1 F Pulse Rate 75 83 79 Respiratory Rate Blood Pressure 138/83 Blood Pressure [Left] O2 Sat by Pulse 97 96 Oximetry O2 Sat by Pulse Oximetry [ Bilateral] 06/19/22 06/19/22 06/19/22 02:38 02:43 02:48 Temperature Pulse Rate 81 75 77 Respiratory Rate Blood Pressure Blood Pressure [Left] O2 Sat by Pulse 98 97 98 Oximetry O2 Sat by Pulse Oximetry [ Bilateral] 06/19/22 06/19/22 06/19/22 02:53 02:58 03:03 Temperature Pulse Rate 77 79 74 Respiratory Rate Blood Pressure Blood Pressure [Left] O2 Sat by Pulse 98 97 97 Oximetry O2 Sat by Pulse Oximetry [ Bilateral] 06/19/22 06/19/22 06/19/22 03:08 03:13 03:18 Temperature Pulse Rate 74 72 75 Respiratory Rate Blood Pressure Blood Pressure [Left] O2 Sat by Pulse 97 96 96 Oximetry O2 Sat by Pulse Oximetry [ Bilateral] 06/19/22 06/19/22 06/19/22 03:23 03:28 03:33 Temperature Pulse Rate 79 74 73 Respiratory Rate Blood Pressure Blood Pressure [Left] O2 Sat by Pulse 97 97 98 Oximetry O2 Sat by Pulse Oximetry [ Bilateral] 06/19/22 06/19/22 06/19/22 03:38 03:43 03:48 Temperature Pulse Rate 71 75 79 Respiratory Rate Blood Pressure Blood Pressure [Left] O2 Sat by Pulse 98 98 98 Oximetry O2 Sat by Pulse Oximetry [ Bilateral] 06/19/22 06/19/22 06/19/22 03:53 03:58 04:03 Temperature Pulse Rate 79 73 78 Respiratory Rate Blood Pressure Blood Pressure [Left] O2 Sat by Pulse 98 97 96 Oximetry O2 Sat by Pulse Oximetry [ Bilateral] 06/19/22 06/19/22 06/19/22 04:08 04:13 04:18 Temperature Pulse Rate 77 78 68 Respiratory Rate Blood Pressure Blood Pressure [Left] O2 Sat by Pulse 97 97 97 Oximetry O2 Sat by Pulse Oximetry [ Bilateral] 06/19/22 06/19/22 06/19/22 04:23 04:28 04:33 Temperature Pulse Rate 75 72 74 Respiratory Rate Blood Pressure Blood Pressure [Left] O2 Sat by Pulse 97 96 94 Oximetry O2 Sat by Pulse Oximetry [ Bilateral] 06/19/22 06/19/22 06/19/22 04:38 04:43 04:48 Temperature Pulse Rate 73 69 68 Respiratory Rate Blood Pressure Blood Pressure [Left] O2 Sat by Pulse 97 99 98 Oximetry O2 Sat by Pulse Oximetry [ Bilateral] 06/19/22 06/19/22 06/19/22 04:51 04:53 04:57 Temperature Pulse Rate 74 70 75 Respiratory Rate Blood Pressure Blood Pressure [Left] O2 Sat by Pulse 94 96 94 Oximetry O2 Sat by Pulse Oximetry [ Bilateral] 06/19/22 06/19/22 06/19/22 04:58 05:02 05:03 Temperature Pulse Rate 73 70 77 Respiratory Rate Blood Pressure Blood Pressure [Left] O2 Sat by Pulse 95 94 95 Oximetry O2 Sat by Pulse Oximetry [ Bilateral] 06/19/22 06/19/22 06/19/22 05:07 05:08 05:12 Temperature Pulse Rate 81 75 65 Respiratory Rate Blood Pressure Blood Pressure [Left] O2 Sat by Pulse 94 99 93 Oximetry O2 Sat by Pulse Oximetry [ Bilateral] 06/19/22 06/19/22 06/19/22 05:13 05:22 05:27 Temperature 98.2 F Pulse Rate 70 72 69 Respiratory Rate Blood Pressure Blood Pressure [Left] O2 Sat by Pulse 96 99 99 Oximetry O2 Sat by Pulse Oximetry [ Bilateral] 06/19/22 06/19/22 06/19/22 05:30 05:32 05:37 Temperature Pulse Rate 76 66 66 Respiratory Rate Blood Pressure 140/84 Blood Pressure [Left] O2 Sat by Pulse 97 98 Oximetry O2 Sat by Pulse Oximetry [ Bilateral] 06/19/22 06/19/22 06/19/22 05:42 05:47 05:51 Temperature Pulse Rate 72 74 78 Respiratory Rate Blood Pressure Blood Pressure [Left] O2 Sat by Pulse 97 99 92 Oximetry O2 Sat by Pulse Oximetry [ Bilateral] 06/19/22 06/19/22 06/19/22 05:52 05:57 05:58 Temperature Pulse Rate 72 71 82 Respiratory Rate Blood Pressure Blood Pressure [Left] O2 Sat by Pulse 95 98 91 Oximetry O2 Sat by Pulse Oximetry [ Bilateral] 06/19/22 06/19/22 06/19/22 06:02 06:04 06:07 Temperature Pulse Rate 65 69 74 Respiratory Rate Blood Pressure Blood Pressure [Left] O2 Sat by Pulse 99 92 96 Oximetry O2 Sat by Pulse Oximetry [ Bilateral] 06/19/22 06/19/22 06/19/22 06:09 06:12 06:17 Temperature Pulse Rate 76 70 72 Respiratory Rate Blood Pressure Blood Pressure [Left] O2 Sat by Pulse 93 99 95 Oximetry O2 Sat by Pulse Oximetry [ Bilateral] 06/19/22 06/19/22 06/19/22 06:22 06:26 06:27 Temperature Pulse Rate 70 76 72 Respiratory Rate Blood Pressure Blood Pressure [Left] O2 Sat by Pulse 99 94 96 Oximetry O2 Sat by Pulse Oximetry [ Bilateral] 06/19/22 06/19/22 06/19/22 06:32 06:33 06:37 Temperature Pulse Rate 71 77 73 Respiratory Rate Blood Pressure Blood Pressure [Left] O2 Sat by Pulse 97 93 96 Oximetry O2 Sat by Pulse Oximetry [ Bilateral] 06/19/22 06/19/22 06/19/22 06:39 06:42 06:44 Temperature Pulse Rate 73 89 76 Respiratory Rate Blood Pressure Blood Pressure [Left] O2 Sat by Pulse 93 96 92 Oximetry O2 Sat by Pulse Oximetry [ Bilateral] 06/19/22 06/19/22 06/19/22 06:47 06:50 06:52 Temperature Pulse Rate 71 79 66 Respiratory Rate Blood Pressure Blood Pressure [Left] O2 Sat by Pulse 95 91 95 Oximetry O2 Sat by Pulse Oximetry [ Bilateral] 06/19/22 06/19/22 06/19/22 06:57 06:58 07:02 Temperature Pulse Rate 79 71 82 Respiratory Rate Blood Pressure Blood Pressure [Left] O2 Sat by Pulse 96 92 93 Oximetry O2 Sat by Pulse Oximetry [ Bilateral] 06/19/22 06/19/22 06/19/22 07:04 07:07 07:10 Temperature Pulse Rate 84 75 88 Respiratory Rate Blood Pressure Blood Pressure [Left] O2 Sat by Pulse 90 97 93 Oximetry O2 Sat by Pulse Oximetry [ Bilateral] 06/19/22 06/19/22 06/19/22 07:12 07:16 07:17 Temperature Pulse Rate 87 77 76 Respiratory Rate Blood Pressure Blood Pressure [Left] O2 Sat by Pulse 91 94 96 Oximetry O2 Sat by Pulse Oximetry [ Bilateral] 06/19/22 06/19/22 06/19/22 07:22 07:27 07:32 Temperature Pulse Rate 77 72 66 Respiratory Rate Blood Pressure Blood Pressure [Left] O2 Sat by Pulse 96 96 97 Oximetry O2 Sat by Pulse Oximetry [ Bilateral] 06/19/22 06/19/22 06/19/22 07:37 07:42 07:47 Temperature Pulse Rate 69 68 66 Respiratory Rate Blood Pressure Blood Pressure [Left] O2 Sat by Pulse 97 98 98 Oximetry O2 Sat by Pulse Oximetry [ Bilateral] 06/19/22 06/19/22 06/19/22 07:52 07:57 08:02 Temperature Pulse Rate 74 72 87 Respiratory Rate Blood Pressure Blood Pressure [Left] O2 Sat by Pulse 100 97 96 Oximetry O2 Sat by Pulse Oximetry [ Bilateral] 06/19/22 06/19/22 06/19/22 08:07 08:12 08:17 Temperature Pulse Rate 67 71 71 Respiratory Rate Blood Pressure Blood Pressure [Left] O2 Sat by Pulse 97 97 96 Oximetry O2 Sat by Pulse Oximetry [ Bilateral] 06/19/22 06/19/22 06/19/22 08:22 08:25 08:27 Temperature 98.3 F Pulse Rate 83 79 79 Respiratory 16 Rate Blood Pressure 138/90 Blood Pressure 138/90 [Left] O2 Sat by Pulse 97 98 99 Oximetry O2 Sat by Pulse 98 Oximetry [ Bilateral] 06/19/22 06/19/22 06/19/22 08:32 08:37 08:42 Temperature Pulse Rate 88 78 79 Respiratory Rate Blood Pressure Blood Pressure [Left] O2 Sat by Pulse 99 99 99 Oximetry O2 Sat by Pulse Oximetry [ Bilateral] 06/19/22 06/19/22 06/19/22 08:47 08:52 08:57 Temperature Pulse Rate 85 86 79 Respiratory Rate Blood Pressure Blood Pressure [Left] O2 Sat by Pulse 98 99 98 Oximetry O2 Sat by Pulse Oximetry [ Bilateral] 06/19/22 06/19/22 06/19/22 09:02 09:07 09:12 Temperature Pulse Rate 81 74 82 Respiratory Rate Blood Pressure Blood Pressure [Left] O2 Sat by Pulse 99 98 98 Oximetry O2 Sat by Pulse Oximetry [ Bilateral] 06/19/22 06/19/22 06/19/22 09:17 09:22 09:27 Temperature Pulse Rate 80 79 82 Respiratory Rate Blood Pressure Blood Pressure [Left] O2 Sat by Pulse 99 98 99 Oximetry O2 Sat by Pulse Oximetry [ Bilateral] 06/19/22 06/19/22 06/19/22 09:32 09:37 10:02 Temperature Pulse Rate 85 80 85 Respiratory Rate Blood Pressure Blood Pressure [Left] O2 Sat by Pulse 98 99 99 Oximetry O2 Sat by Pulse Oximetry [ Bilateral] 06/19/22 06/19/22 06/19/22 10:07 10:12 10:17 Temperature Pulse Rate 76 67 68 Respiratory Rate Blood Pressure Blood Pressure [Left] O2 Sat by Pulse 98 98 99 Oximetry O2 Sat by Pulse Oximetry [ Bilateral] 06/19/22 06/19/22 06/19/22 10:22 10:27 10:32 Temperature Pulse Rate 72 70 74 Respiratory Rate Blood Pressure Blood Pressure [Left] O2 Sat by Pulse 100 98 98 Oximetry O2 Sat by Pulse Oximetry [ Bilateral] 06/19/22 06/19/22 06/19/22 10:37 10:42 10:47 Temperature Pulse Rate 72 68 70 Respiratory Rate Blood Pressure Blood Pressure [Left] O2 Sat by Pulse 98 99 99 Oximetry O2 Sat by Pulse Oximetry [ Bilateral] 06/19/22 06/19/22 06/19/22 10:52 10:57 11:02 Temperature Pulse Rate 76 75 67 Respiratory Rate Blood Pressure Blood Pressure [Left] O2 Sat by Pulse 98 99 99 Oximetry O2 Sat by Pulse Oximetry [ Bilateral] 06/19/22 06/19/22 06/19/22 11:07 11:12 11:17 Temperature Pulse Rate 70 74 61 Respiratory Rate Blood Pressure Blood Pressure [Left] O2 Sat by Pulse 99 98 98 Oximetry O2 Sat by Pulse Oximetry [ Bilateral] 06/19/22 06/19/22 06/19/22 11:22 11:27 11:28 Temperature Pulse Rate 68 68 65 Respiratory Rate Blood Pressure Blood Pressure [Left] O2 Sat by Pulse 99 100 94 Oximetry O2 Sat by Pulse Oximetry [ Bilateral] 06/19/22 06/19/22 06/19/22 11:32 11:37 11:42 Temperature Pulse Rate 67 70 70 Respiratory Rate Blood Pressure Blood Pressure [Left] O2 Sat by Pulse 99 99 98 Oximetry O2 Sat by Pulse Oximetry [ Bilateral] 06/19/22 06/19/22 06/19/22 11:47 11:52 11:57 Temperature Pulse Rate 67 72 83 Respiratory Rate Blood Pressure Blood Pressure [Left] O2 Sat by Pulse 99 98 99 Oximetry O2 Sat by Pulse Oximetry [ Bilateral] 06/19/22 06/19/22 06/19/22 12:02 12:05 12:07 Temperature Pulse Rate 76 37 L 75 Respiratory Rate Blood Pressure Blood Pressure [Left] O2 Sat by Pulse 99 91 98 Oximetry O2 Sat by Pulse Oximetry [ Bilateral] 06/19/22 06/19/22 06/19/22 12:12 12:17 12:22 Temperature Pulse Rate 81 88 97 H Respiratory Rate Blood Pressure Blood Pressure [Left] O2 Sat by Pulse 97 98 99 Oximetry O2 Sat by Pulse Oximetry [ Bilateral] 06/19/22 06/19/22 06/19/22 12:25 12:26 12:27 Temperature 98.5 F Pulse Rate 93 H 96 H 100 H Respiratory 18 Rate Blood Pressure 141/78 Blood Pressure 141/78 [Left] O2 Sat by Pulse 98 99 Oximetry O2 Sat by Pulse Oximetry [ Bilateral] 06/19/22 06/19/22 06/19/22 12:32 12:37 12:42 Temperature Pulse Rate 98 H 97 H 91 H Respiratory Rate Blood Pressure Blood Pressure [Left] O2 Sat by Pulse 98 98 99 Oximetry O2 Sat by Pulse Oximetry [ Bilateral] 06/19/22 06/19/22 06/19/22 12:47 12:52 12:57 Temperature Pulse Rate 96 H 95 H 95 H Respiratory Rate Blood Pressure Blood Pressure [Left] O2 Sat by Pulse 99 98 99 Oximetry O2 Sat by Pulse Oximetry [ Bilateral] 06/19/22 06/19/22 06/19/22 13:02 13:07 13:12 Temperature Pulse Rate 100 H 104 H 101 H Respiratory Rate Blood Pressure Blood Pressure [Left] O2 Sat by Pulse 99 98 98 Oximetry O2 Sat by Pulse Oximetry [ Bilateral] 06/19/22 06/19/22 06/19/22 13:17 13:22 13:27 Temperature Pulse Rate 95 H 92 H 88 Respiratory Rate Blood Pressure Blood Pressure [Left] O2 Sat by Pulse 99 99 97 Oximetry O2 Sat by Pulse Oximetry [ Bilateral] General appearance: Present: no acute distress - Neck Neck: normal ROM - Respiratory Respiratory effort: normal - Breasts Breasts: deferred - Cardiovascular Rhythm: regular Extremities: No edema - Gastrointestinal General gastrointestinal: Present: soft, non-tender - Genitourinary Female genitourinary: deferred - Integumentary Integumentary: warm, dry - Neurologic Neurologic: moves all extremities - Psychiatric Psychiatric: cooperative - Labs CBC & Chem 7: 06/16/22 14:00 06/16/22 14:00 Medications & Allergies - Medications Allergies/Adverse Reactions: Allergies No Known Allergies Allergy (Verified 06/16/22 13:37) Home Medications: Home Medications Medication Instructions Recorded Confirmed Last Taken Type Aspirin 81 mg PO DAILY 06/16/22 06/16/22 06/16/22 History 81 MG Tablet 1 tab PO DAILY 06/16/22 06/16/22 06/16/22 History 1 TAB Vitamin D3 1 tab PO DAILY 06/16/22 06/16/22 Unknown History Active Medications: Generic Name Dose Route Start Last Admin Trade Name Alexanderq PRN Reason Stop Dose Admin Acetaminophen 650 mg 06/16/22 17:24 06/17/22 09:09 Acetaminophen 325 Mg Tab PO 650 mg Q4H PRN Administration Pain MILD(1-3)/Fever >100.5/MILLIGAN Docusate Sodium 100 mg 06/16/22 17:24 Docusate Sodium 100 Mg Cap PO Q12H PRN Constipation Hydralazine HCl 5 mg 06/16/22 15:00 Hydralazine 20 Mg/1 Ml Inj IV Q30MIN PRN Hypertension Magnesium Sulfate 40 gm in 1,000 mls @ 50 mls/hr 06/16/22 14:00 06/17/22 16:10 Magnesium Sulfate 40gm/1000ml IV Infused DIRECT DARY Infusion 2 GM/HR Lactated Ringer's 1,000 mls @ 80 mls/hr 06/17/22 23:45 06/19/22 02:38 Lactated Ringers IV 80 mls/hr DIRECT DARY Administration Labetalol HCl 200 mg 06/16/22 14:55 06/19/22 08:25 Labetalol 200 Mg Tab PO 200 mg TID DARY Administration Multivitamins/Iron/Calcium 1 each 06/17/22 10:00 06/19/22 10:47 [id number] Fumarate-Folic Acid Vit Tab PO 1 each QDAY DARY Administration
[2022-06-19] MEDS ORDERED: ACETAMINOPHEN 325 MG TAB PO PRN (15:00)
[2022-06-19] MEDS ORDERED: SIMETHICONE 80 MG CHEW TAB PO PRN (15:00)
[2022-06-19] MEDS ORDERED: DOCUSATE SODIUM 100 MG CAP PO PRN (15:00)
--- NOTE | 2022-06-19 20:46 | Progress Note ---
Subjective Date of service: 06/19/22 Principal diagnosis: Severe IUGR, Oligohydramnious, absent end diastolic flow Interval history: Called by charge nurse to inform me of patient requiring csection for Severe IUGR with oligo, BPP 6/8, LUCHO 4.8 improved from admit LUCHO 1.8, and abnormal u/s with absent diastolic flow on dopplers, breech presentation on 06/18/22 1. I was told by charge nurse and Dr Diaz, Patient had a full meal, "hamburger". Anesthesia is willing to perform a safe anesthetic if it is an emergency. per Dr Locke, not an emergency, patient can wait 8hrs after her last meal. 2. Told by Charge nurse FOR[facility] Carter due to staff shortage unable to perform csection at 8PM as scheduled. 3. I met with her along with her nurse, and family, we together went over current status, current treatment options. Risk, Benefits and alternatives emplaned. Questions were encouraged and answered. 4. Ms. Ahn's current medical records show IUP 27 weeks, pre-eclampsia and morbid obesity. These conditions increase of risk for aspiration pneumonia, failed or difficult intubation, Stroke and seizures. She agrees with waiting eight hours after her last meal. Objective - Constitutional Vitals: Vital Signs - 12hr 06/19/22 06/19/22 06/19/22 08:47 08:52 08:57 Temperature Pulse Rate 85 86 79 Respiratory Rate Blood Pressure Blood Pressure [Left] O2 Sat by Pulse 98 99 98 Oximetry 06/19/22 06/19/22 06/19/22 09:02 09:07 09:12 Temperature Pulse Rate 81 74 82 Respiratory Rate Blood Pressure Blood Pressure [Left] O2 Sat by Pulse 99 98 98 Oximetry 06/19/22 06/19/22 06/19/22 09:17 09:22 09:27 Temperature Pulse Rate 80 79 82 Respiratory Rate Blood Pressure Blood Pressure [Left] O2 Sat by Pulse 99 98 99 Oximetry 06/19/22 06/19/22 06/19/22 09:32 09:37 10:02 Temperature Pulse Rate 85 80 85 Respiratory Rate Blood Pressure Blood Pressure [Left] O2 Sat by Pulse 98 99 99 Oximetry 06/19/22 06/19/22 06/19/22 10:07 10:12 10:17 Temperature Pulse Rate 76 67 68 Respiratory Rate Blood Pressure Blood Pressure [Left] O2 Sat by Pulse 98 98 99 Oximetry 06/19/22 06/19/22 06/19/22 10:22 10:27 10:32 Temperature Pulse Rate 72 70 74 Respiratory Rate Blood Pressure Blood Pressure [Left] O2 Sat by Pulse 100 98 98 Oximetry 06/19/22 06/19/22 06/19/22 10:37 10:42 10:47 Temperature Pulse Rate 72 68 70 Respiratory Rate Blood Pressure Blood Pressure [Left] O2 Sat by Pulse 98 99 99 Oximetry 06/19/22 06/19/22 06/19/22 10:52 10:57 11:02 Temperature Pulse Rate 76 75 67 Respiratory Rate Blood Pressure Blood Pressure [Left] O2 Sat by Pulse 98 99 99 Oximetry 06/19/22 06/19/22 06/19/22 11:07 11:12 11:17 Temperature Pulse Rate 70 74 61 Respiratory Rate Blood Pressure Blood Pressure [Left] O2 Sat by Pulse 99 98 98 Oximetry 06/19/22 06/19/22 06/19/22 11:22 11:27 11:28 Temperature Pulse Rate 68 68 65 Respiratory Rate Blood Pressure Blood Pressure [Left] O2 Sat by Pulse 99 100 94 Oximetry 06/19/22 06/19/22 06/19/22 11:32 11:37 11:42 Temperature Pulse Rate 67 70 70 Respiratory Rate Blood Pressure Blood Pressure [Left] O2 Sat by Pulse 99 99 98 Oximetry 06/19/22 06/19/22 06/19/22 11:47 11:52 11:57 Temperature Pulse Rate 67 72 83 Respiratory Rate Blood Pressure Blood Pressure [Left] O2 Sat by Pulse 99 98 99 Oximetry 06/19/22 06/19/22 06/19/22 12:02 12:05 12:07 Temperature Pulse Rate 76 37 L 75 Respiratory Rate Blood Pressure Blood Pressure [Left] O2 Sat by Pulse 99 91 98 Oximetry 06/19/22 06/19/22 06/19/22 12:12 12:17 12:22 Temperature Pulse Rate 81 88 97 H Respiratory Rate Blood Pressure Blood Pressure [Left] O2 Sat by Pulse 97 98 99 Oximetry 06/19/22 06/19/22 06/19/22 12:25 12:26 12:27 Temperature 98.5 F Pulse Rate 93 H 96 H 100 H Respiratory 18 Rate Blood Pressure 141/78 Blood Pressure 141/78 [Left] O2 Sat by Pulse 98 99 Oximetry 06/19/22 06/19/22 06/19/22 12:32 12:37 12:42 Temperature Pulse Rate 98 H 97 H 91 H Respiratory Rate Blood Pressure Blood Pressure [Left] O2 Sat by Pulse 98 98 99 Oximetry 06/19/22 06/19/22 06/19/22 12:47 12:52 12:57 Temperature Pulse Rate 96 H 95 H 95 H Respiratory Rate Blood Pressure Blood Pressure [Left] O2 Sat by Pulse 99 98 99 Oximetry 06/19/22 06/19/22 06/19/22 13:02 13:07 13:12 Temperature Pulse Rate 100 H 104 H 101 H Respiratory Rate Blood Pressure Blood Pressure [Left] O2 Sat by Pulse 99 98 98 Oximetry 06/19/22 06/19/22 06/19/22 13:17 13:22 13:27 Temperature Pulse Rate 95 H 92 H 88 Respiratory Rate Blood Pressure Blood Pressure [Left] O2 Sat by Pulse 99 99 97 Oximetry 06/19/22 06/19/22 06/19/22 13:32 13:37 13:42 Temperature Pulse Rate 94 H 95 H 94 H Respiratory Rate Blood Pressure Blood Pressure [Left] O2 Sat by Pulse 98 99 99 Oximetry 06/19/22 06/19/22 06/19/22 13:47 13:52 13:57 Temperature Pulse Rate 84 82 84 Respiratory Rate Blood Pressure Blood Pressure [Left] O2 Sat by Pulse 98 98 97 Oximetry 06/19/22 06/19/22 06/19/22 14:49 14:50 14:55 Temperature Pulse Rate 75 73 72 Respiratory Rate Blood Pressure 141/87 Blood Pressure [Left] O2 Sat by Pulse 96 97 Oximetry 06/19/22 06/19/22 06/19/22 15:00 15:05 15:10 Temperature Pulse Rate 68 68 66 Respiratory Rate Blood Pressure Blood Pressure [Left] O2 Sat by Pulse 97 98 96 Oximetry 06/19/22 06/19/22 06/19/22 15:15 15:20 15:25 Temperature Pulse Rate 74 82 94 H Respiratory Rate Blood Pressure Blood Pressure [Left] O2 Sat by Pulse 97 97 98 Oximetry 06/19/22 06/19/22 06/19/22 15:30 15:35 15:40 Temperature Pulse Rate 77 79 86 Respiratory Rate Blood Pressure Blood Pressure [Left] O2 Sat by Pulse 98 98 98 Oximetry 06/19/22 06/19/22 06/19/22 15:45 15:50 15:55 Temperature Pulse Rate 76 79 71 Respiratory Rate Blood Pressure Blood Pressure [Left] O2 Sat by Pulse 98 99 99 Oximetry 06/19/22 06/19/22 06/19/22 20:38 20:39 20:44 Temperature Pulse Rate 63 69 65 Respiratory Rate Blood Pressure Blood Pressure [Left] O2 Sat by Pulse 92 98 97 Oximetry - Labs CBC & Chem 7: 06/20/22 07:40 06/16/22 14:00
--- NOTE | 2022-06-19 21:44 | Ultrasound Report ---
ULTRASOUND OBSTETRIC LIMITED INDICATION / CLINICAL INFORMATION: Breech. Evaluate presentation. - Clinical Gestational Age (GA) in weeks, days: 27, 3 TECHNIQUE: Transabdominal. COMPARISON: 06/18/2022 FINDINGS: HEART RATE (beats per minute): 151 PRESENTATION: Breech. ADDITIONAL FINDINGS: None. IMPRESSION: 1. Breech presentation. Signer Name: Merrill Bose MD Signed: 06/19/2022 9:40 PM Workstation Name: [email or web address]
[2022-06-19] MEDS ORDERED: METOCLOPRAMIDE 10 MG/2 ML INJ IV ONE (23:20)
[2022-06-19] MEDS ORDERED: LACTATED RINGERS 1,000 ML IV SCH (23:30)
--- NOTE | 2022-06-19 23:31 | Event Note ---
Date: 06/19/22 CHIEF COMPLAINT: HD #4 pre-eclampsia, growth restriction, oligohydramnios, breech HISTORY OF PRESENT ILLNESS: 31-year-old primigravida at 27-4/7 weeks gestation is on labor and delivery for management of preeclampsia, growth restriction, oligohydramnios, and breech presentation. The estimated weight was last than the 1st percentile, and umbilical artery cord Dopplers revealed absent end-diastolic flow. premature rupture membranes was ruled out. The patient's blood pressures were consistently >140/90 with proteinuria noted on a 24 urine protein collection. The patient received a course of glucocorticoids and 24 hours of intravenous magnesium sulfate for neuroprotection. Maternal- medicine was consulted and delivery was recommended. OB ultrasound limited confirmed that the fetus remained in breech position. As such, the route of delivery is primary delivery. The patient denies contractions. She has no vaginal bleeding. There is good movement. She denies leaking of fluid. MEDICATIONS: Labetalol 200 mg TID OBJECTIVE: BP= 147/92 EFM= category 1 TOCO= none ABD= gravid LABS: 24 hour urine protein= 301 mg ROM Plus= (-) RADIOLOGY: OB Ultrasound Comprehensive/Level II (by [facility])= SLIUP. Breech. Anterior placenta. EFW= 617 g (<1st %-ile). LUCHO= 1.6 cm. echogenic bowel. OB Ultrasound Umbilical Artery Cord Dopplers= Absent end-diastolic flow. OB Ultrasound Limited= Breech. LUCHO= 4.8 cm. BPP= 8/8 IMPRESSION: 1.) 27 weeks 2.) Pre-eclampsia 3.) growth restriction, severe 4.) Oligohydramnios 5.) Breech 6.) Obesity 7.) Genital herpes 8.) Abnormal AFP PLAN: 1.) care is up-to-date at [facility]. 2.) The patient received a course of glucocorticoids and 24 hours of intravenous magnesium sulfate for neuroprotection. 3.) And lieu of nursing staffing shortage on night time nanny, at this nonelective (but not emergent) primary delivery is postponed until 9:00 AM tomorrow morning. 4.) Dr. Joshi agrees to be the surgeon to perform this primary delivery. 5.) [facility] is already scheduled to be in-house tomorrow after 9:00 AM also. 6.) In the interim, if there is a category III heart rate tracing, then emergency delivery will be performed.
[2022-06-19] MEDS ORDERED: BICITRA ORAL LIQD 30ML PO ONE (23:40)
[2022-06-19] MEDS ORDERED: FAMOTIDINE 20 MG/2 ML INJ IV ONE (23:40)
[2022-06-19] MEDS ORDERED: OXYTOCIN DRIP 30 UNITS/500 ML BAG IV SCH (23:45)
[2022-06-19] MEDS ORDERED: ceFAZolin/Water 2 GM/20 ML 2 GM/20 ML SYRINGE IV NR (23:45)
[2022-06-19] MEDS ORDERED: AZITHROMYCIN/NS 500 MG/250 ML 500 MG/250 ML BAG IV ONE (23:50)
[2022-06-20] MEDS: LACTATED RINGERS 1,000 ML IV SCH (04:41)
--- NOTE | 2022-06-20 07:04 | Anesthesia Day of Surgery ---
Anesthesia Day of Surgery - Day of Surgery Patient Examined: Yes Patient H&P Reviewed: Yes Patient is NPO: Yes
[2022-06-20] MEDS ORDERED: FAMOTIDINE 20 MG/2 ML INJ IV NR (08:14)
[2022-06-20] MEDS ORDERED: BICITRA ORAL LIQD 30ML PO NR (08:14)
[2022-06-20] MEDS ORDERED: METOCLOPRAMIDE 10 MG/2 ML INJ IV NR (08:14)
[2022-06-20 08:27] LABS: Basophils % (Auto) 0.4 % (0.0-1.8); Eosinophils % (Auto) 0.2 % (0.0-4.3); Hematocrit 32.3 % (30.3-42.9); Hemoglobin 10.8 gm/dl (10.1-14.3); Lymphocytes # (Auto) 2.6 K/mm3 (1.2-5.4); Lymphocytes % (Auto) 27.7 % (13.4-35.0); Mean Corpuscular HGB Conc 33 % (30-34); Mean Corpuscular Volume 98 fl (79-97); Monocytes # (Auto) 0.8 K/mm3 (0.0-0.8); Monocytes % (Auto) 8.3 % (0.0-7.3); Platelet Count 229 K/mm3 (140-440); Red Blood Count 3.29 M/mm3 (3.65-5.03); Red Cell Distribution Width 12.1 % (13.2-15.2)
[2022-06-20] MEDS ORDERED: CARBOPROST TROMETHAMINE 250 MCG/1 ML INJ IM ONE (08:37)
[2022-06-20] MEDS ORDERED: METHYLERGONOVINE MALEATE 0.2 MG/ML VIAL IM ONE (08:37)
[2022-06-20] MEDS ORDERED: miSOPROStol 200 MCG TAB ONE ×2 (08:37→13:14)
[2022-06-20] MEDS ORDERED: LACTATED RINGERS 1,000 ML IV SCH (09:00)
[2022-06-20] MEDS ORDERED: AZITHROMYCIN/NS 500 MG/250 ML 500 MG/250 ML BAG IV NR (09:00)
[2022-06-20] MEDS ORDERED: ceFAZolin/Water 2 GM/20 ML 2 GM/20 ML SYRINGE IV NR (09:00)
--- NOTE | 2022-06-20 09:04 | Anesthesia Consultation ---
Anesthesia Consult and Med Hx Date of service: 06/20/22 - Airway Anesthetic Teeth Evaluation: Poor ROM Head & Neck: Adequate Mental/Hyoid Distance: Adequate Mallampati Class: Class II Intubation Access Assessment: Probably Good - Pulmonary Exam CTA: Yes - Cardiac Exam Cardiac Exam: RRR - Pre-Operative Health Status ASA Pre-Surgery Classification: ASA3 Proposed Anesthetic Plan: Epidural, Spinal - Pulmonary Hx Smoking: No Hx Asthma: No Hx Respiratory Symptoms: No - Cardiovascular System Hx Hypertension: Yes (CURRENT ) Hx Coronary Artery Disease: No Hx Heart Attack/AMI: No Hx Cardia Arrhythmia: No - Central Nervous System Hx Seizures: No Hx Back Pain: Yes Hx Psychiatric Problems: No - Gastrointestinal Hx Gastroesophageal Reflux Disease: Yes - Endocrine Hx Renal Disease: No Hx Hypothyroidism: No Hx Hyperthyroidism: No - Hematic Hx Anemia: No Hx Sickle Cell Disease: No - Other Systems Hx Alcohol Use: No Hx Substance Use: No Hx Obesity: Yes
[2022-06-20] MEDS ORDERED: ONDANSETRON 4 MG/2 ML INJ ONE (09:12)
[2022-06-20] MEDS ORDERED: BUPIVACAINE/PF (0.5%) 5 MG/1 ML 30 ML VIAL INFILTRATI ONE (09:12)
[2022-06-20] MEDS ORDERED: PRENATAL VIT27-FE FUMARATE-FOLIC ACID VIT TAB PO SCH (10:00)
[2022-06-20] MEDS ORDERED: ePHEDrine SULFATE 50 MG/1 ML INJ ONE (10:56)
[2022-06-20] MEDS ORDERED: PHENYLEPHRINE/NS 1,000 MCG/10 ML SYRINGE (OR USE) IV ONE (10:56)
[2022-06-20] MEDS ORDERED: ceFAZolin/STERILE WATER 2 GM/20 ML SYRINGE IV ONE (11:00)
[2022-06-20] MEDS ORDERED: SODIUM CHLORIDE 0.9% IRR 1,500 ML BOTTLE IR ONE (11:15)
[2022-06-20] MEDS ORDERED: WATER FOR IRRIG STERILE 1,500 ML BOTTLE IR ONE (11:15)
[2022-06-20] MEDS ORDERED: SODIUM CHLORIDE 0.9% 100 ML ONE (12:10)
[2022-06-20] MEDS ORDERED: KETOROLAC 30 MG/1 ML INJ ONE (13:01)
--- NOTE | 2022-06-20 13:11 | Procedure Note ---
OB Delivery Note - Delivery Date of Delivery: 06/20/22 Surgeon: RAMEZ PRAKASH Welding Pantograph Machine Operator: RENÉE WILL Estimated blood loss: other (568) - Section Preop diagnosis: breech, other (Severe Intauterine Growth Restriction, Pre- eclampsia, Oligohydramnios, Obesity, Absent End Diastolic Flow) Postop diagnosis: same section procedure: vertical Disposition: PACU Complications: none Narrative: The risk of the section was discussed with patient. Patient was given opportunity to ask questions. Informed consent was obtained. The patient was taken to the operating room. Spinal anesthesia was given. She was placed in the supine position with a leftward tilt. A Adamson catheter was placed. She was prepped and draped in the normal sterile fashion. A Pfannenstiel skin incision was made with a scalpel approximately 2 fingerbreadths above the symphysis pubis. The incision was carried down to the underlying layer of fascia. Blunt dissection of the subcutaneous fascia was performed. The fascia was incised in the midline and extended laterally using the Pablo scissors. The superior edge of the fascia was grasped with Lia clamps elevated and the rectus muscle dissected off. The inferior aspect of the fascia was grasped with Lia clamps, elevated and the rectus rectus dissected off. The rectus muscle and peritoneum was opened bluntly and the peritoneum stretched manually. On entering the abdomen the peritoneum was adherent to the bladder. Lysis of the adhesion was performed. The right ovary was adherent to the right fundal area. The Mark was placed into the abdomen. The lower uterine segment was extremely vascular. A vertical incision was made extending into the fundal area. On entering the uterine cavity the placenta was noted to be anterior. The was in the footling breech presentation. The infant's feet was grasped and breech extraction of the infant was performed. The cord was clamped and cut and the handed off to the awaiting NICU team. Difficulty was encountered in obtaining cord blood and gas. The placenta was delivered spontaneously. The uterine cavity was cleared of all clots and debris. The vertical hysterotomy was closed in 3 layers using 1 Vicryl suture. The Mark was removed. The hysterotomy was covered with Surgicel. The fascia was closed with 0 Vicryl suture in a running fashion. The subcutaneous fat was closed with 3-0 Vicryl. The skin was closed with subcuticular sutures of 4-0 Vicryl. The patient tolerated the procedure well. She was taken to PACU in stable condition. - Infant A at 1 minute: 7 at 5 minutes: 9 Infant Gender: Male (560gms)
[2022-06-20] MEDS ORDERED: hydrALAZINE 20 MG/1 ML INJ ONE (13:54)
[2022-06-20] MEDS ORDERED: MAGNESIUM SULFATE 40GM/1000ML 40 GM/1,000 ML BAG IV ONE (13:57)
[2022-06-20] MEDS ORDERED: MAGNESIUM SULFATE 4 GM/100 ML BAG IV ONE ×2 (13:58→16:07)
[2022-06-20] MEDS ORDERED: D5W/LACTATED RINGERS 1,000 ML IV SCH (14:00)
[2022-06-20] MEDS ORDERED: OXYTOCIN DRIP 30 UNITS/500 ML BAG IV SCH (14:00)
[2022-06-20] MEDS ORDERED: WITCH HAZEL/ GLYCERIN PAD TP PRN (14:00)
[2022-06-20] MEDS ORDERED: IBUPROFEN 600 MG TAB PO PRN (14:00)
[2022-06-20] MEDS ORDERED: HYDROcodone/ACETAMINOPHEN 5-325 MG TAB PO PRN ×2 (14:02→23:04)
[2022-06-20] MEDS ORDERED: ONDANSETRON 4 MG/2 ML INJ IV PRN (14:04)
[2022-06-20] MEDS ORDERED: NALOXONE 0.4 MG/1 ML INJ IV PRN (14:30)
[2022-06-20] MEDS ORDERED: LANOLIN/ZINC/DIMETHICONE (LANSINOH) 7 GM TP PRN (14:30)
[2022-06-20] MEDS ORDERED: MAGNESIUM SULFATE 2 GM/50 ML BAG IV SCH (15:00)
[2022-06-20] MEDS ORDERED: LACTATED RINGERS 1,000 ML ONE (15:19)
[2022-06-20] MEDS: KETOROLAC 30 MG/1 ML INJ IV PRN ×2 (15:46→22:26)
--- NOTE | 2022-06-20 16:33 | Progress Note ---
Spinal Anesthesia Block - Spinal Anesthesia Block Start Time: 10:43 Stop Time: 10:50 Performed by:: FROYLAN PORTER Procedure: Patient is requesting epidural for labor pain. H&P and labs reviewed. Procedure explained, questions answered, consent obtained. Patient placed in sitting position with monitors applied. Timeout performed immediately before start of procedure. Prep/drape in usual sterile fashion. Skin localized 3 mL 1% lidocaine at L[2]-L[3] interspace. 17-gauge Tuohy epidural needle advanced to MARI with saline at [8] cm. No blood/CSF noted via epidural needle. 25g spinal needle advanced into intrathecal space until clear, free flowing CSF noted. 2mL 0.5% hyperbaric bupivacaine + 0.5mL Precdex injected into intrathecal space. Spinal needle removed and epidural catheter advanced to [12] cm. Negative aspiration for blood and CSF via catheter. Sterile dressing applied followed by tape reinforcement. Patient tolerated procedure well. No immediate complications noted.
--- NOTE | 2022-06-20 16:35 | Progress Note ---
Regional Anesthesia Block - Regional Anesthesia Block Start Time: 12:40 Stop Time: 12:50 Performed By:: FROYLAN PORTER Procedure: Patient consented for TAP block for post surgical pain management. Patient identified, monitors placed, and time out performed. TAP identified bilaterally via ultrasound. Skin prepped bilaterally with [chlorhexidine] and [22g stimuplex] needle advanced to the TAP. [Marcaine 0.22% 35ml] injected under ultrasound guidance on the [left] side. [Marcaine 0.22% 35ml] injected under ultrasound guidance on the [right] side. Negative aspiration every 5mL, No change in heart rate or rhythm. Patient tolerated the procedure well. No apparent complications seen.
[2022-06-20 17:28] LABS: Mucus,Urine 2+ /HPF
[2022-06-20 17:52] LABS: Color,Urine Yellow (Yellow)
[2022-06-20 19:26] LABS: Hematocrit 30.7 % (30.3-42.9); Mean Corpuscular HGB Conc 33 % (30-34); Mean Corpuscular Volume 99 fl (79-97); Platelet Count 243 K/mm3 (140-440); Red Blood Count 3.09 M/mm3 (3.65-5.03); Red Cell Distribution Width 12.1 % (13.2-15.2)
[2022-06-20 20:00] LABS: Alanine Aminotransferase 147 units/L (7-56); Uric Acid 3.2 mg/dL (3.5-7.6)
[2022-06-20] MEDS ORDERED: ACETAMINOPHEN 500 MG TAB PO PRN (23:04)
[2022-06-21 02:12] LABS: Hematocrit 28.8 % (30.3-42.9); Hemoglobin 9.5 gm/dl (10.1-14.3)
[2022-06-21] MEDS ORDERED: LACTATED RINGERS 1,000 ML ONE (04:33)
[2022-06-21] MEDS ORDERED: LACTATED RINGERS 1,000 ML IV SCH (05:45)
[2022-06-21] MEDS: HYDROcodone/ACETAMINOPHEN 5-325 MG TAB PO PRN ×3 (09:46→22:08)
--- NOTE | 2022-06-21 11:12 | Post Anesthesia Evaluation ---
- Post Anesthesia Evaluation Patient Participated: Yes Airway Patent: Yes Stable Respiratory Function: Yes Nausea/Vomiting: No Temp > 96.8F: Yes Pain Manageable: Yes Adequeate Hydration: Yes Anesthesia Complications: No Block Receding Appropriately: Yes Patient on Ventilator: No
--- NOTE | 2022-06-21 13:58 | Progress Note ---
Assessment and Plan POD#1 C/S with preeclampsia and BP wnl, doing fair on mag sulfate and gastelum cath with concentrated orange colored urine 1. D/C mag sulfate now and keep gastelum cath in place x6hrs and monitor urine output closely 2. Continue IV hydration at 125cc/hr [id number] 3. Routine post op care All questions encouraged and answered Subjective Date of service: 06/21/22 Principal diagnosis: POD#1 C/S with preeclampsia Interval history: pt states pain controlled with meds. Pt has not passed flatus as yet. Vag bleed less than a period. Pt sitting out in the chair Objective - Constitutional Vitals: Vital Signs - 12hr 06/21/22 06/21/22 06/21/22 01:55 02:00 02:05 Pulse Rate 72 73 72 Blood Pressure O2 Sat by Pulse 100 99 99 Oximetry O2 Sat by Pulse 97 Oximetry [ Bilateral] 06/21/22 06/21/22 06/21/22 02:07 02:10 02:15 Pulse Rate 72 74 70 Blood Pressure 138/84 O2 Sat by Pulse 99 100 Oximetry O2 Sat by Pulse Oximetry [ Bilateral] 06/21/22 06/21/22 06/21/22 02:20 02:25 02:30 Pulse Rate 71 72 67 Blood Pressure O2 Sat by Pulse 100 99 99 Oximetry O2 Sat by Pulse Oximetry [ Bilateral] 06/21/22 06/21/22 06/21/22 02:35 02:37 02:40 Pulse Rate 68 68 67 Blood Pressure 136/88 O2 Sat by Pulse 98 95 Oximetry O2 Sat by Pulse Oximetry [ Bilateral] 06/21/22 06/21/22 06/21/22 02:45 02:49 02:50 Pulse Rate 73 77 Blood Pressure O2 Sat by Pulse 99 92 98 Oximetry O2 Sat by Pulse Oximetry [ Bilateral] 06/21/22 06/21/22 06/21/22 02:55 03:00 03:05 Pulse Rate 74 70 70 Blood Pressure O2 Sat by Pulse 100 100 99 Oximetry O2 Sat by Pulse Oximetry [ Bilateral] 06/21/22 06/21/22 06/21/22 03:07 03:10 03:15 Pulse Rate 73 70 77 Blood Pressure 148/86 O2 Sat by Pulse 98 100 Oximetry O2 Sat by Pulse Oximetry [ Bilateral] 06/21/22 06/21/22 06/21/22 03:20 03:25 03:30 Pulse Rate 71 67 68 Blood Pressure O2 Sat by Pulse 98 100 96 Oximetry O2 Sat by Pulse Oximetry [ Bilateral] 06/21/22 06/21/22 06/21/22 03:35 03:37 03:40 Pulse Rate 72 69 71 Blood Pressure 140/80 O2 Sat by Pulse 96 94 95 Oximetry O2 Sat by Pulse Oximetry [ Bilateral] 06/21/22 06/21/22 06/21/22 03:42 03:45 03:50 Pulse Rate 72 74 74 Blood Pressure O2 Sat by Pulse 94 95 95 Oximetry O2 Sat by Pulse Oximetry [ Bilateral] 06/21/22 06/21/22 06/21/22 03:52 03:55 03:57 Pulse Rate 71 74 71 Blood Pressure O2 Sat by Pulse 93 94 94 Oximetry O2 Sat by Pulse Oximetry [ Bilateral] 06/21/22 06/21/22 06/21/22 04:00 04:03 04:05 Pulse Rate 74 76 73 Blood Pressure O2 Sat by Pulse 94 93 93 Oximetry O2 Sat by Pulse Oximetry [ Bilateral] 06/21/22 06/21/22 06/21/22 04:07 04:09 04:10 Pulse Rate 71 73 73 Blood Pressure 137/90 O2 Sat by Pulse 94 98 Oximetry O2 Sat by Pulse Oximetry [ Bilateral] 06/21/22 06/21/22 06/21/22 04:15 04:20 04:25 Pulse Rate 69 70 76 Blood Pressure O2 Sat by Pulse 97 96 91 Oximetry O2 Sat by Pulse Oximetry [ Bilateral] 06/21/22 06/21/22 06/21/22 04:30 04:31 04:35 Pulse Rate 72 74 69 Blood Pressure O2 Sat by Pulse 96 94 97 Oximetry O2 Sat by Pulse Oximetry [ Bilateral] 06/21/22 06/21/22 06/21/22 04:37 04:40 04:42 Pulse Rate 84 73 72 Blood Pressure 137/82 O2 Sat by Pulse 92 97 94 Oximetry O2 Sat by Pulse Oximetry [ Bilateral] 06/21/22 06/21/22 06/21/22 04:45 04:48 04:50 Pulse Rate 71 78 81 Blood Pressure O2 Sat by Pulse 96 94 93 Oximetry O2 Sat by Pulse Oximetry [ Bilateral] 06/21/22 06/21/22 06/21/22 04:53 04:55 05:00 Pulse Rate 81 68 72 Blood Pressure O2 Sat by Pulse 93 95 95 Oximetry O2 Sat by Pulse Oximetry [ Bilateral] 06/21/22 06/21/22 06/21/22 05:05 05:06 05:07 Pulse Rate 71 71 70 Blood Pressure 151/80 O2 Sat by Pulse 98 94 Oximetry O2 Sat by Pulse Oximetry [ Bilateral] 06/21/22 06/21/22 06/21/22 05:10 05:15 05:20 Pulse Rate 73 82 71 Blood Pressure O2 Sat by Pulse 96 96 96 Oximetry O2 Sat by Pulse Oximetry [ Bilateral] 06/21/22 06/21/22 06/21/22 05:25 05:29 05:30 Pulse Rate 74 74 75 Blood Pressure O2 Sat by Pulse 96 94 94 Oximetry O2 Sat by Pulse Oximetry [ Bilateral] 06/21/22 06/21/22 06/21/22 05:35 05:37 05:40 Pulse Rate 75 85 74 Blood Pressure 142/79 O2 Sat by Pulse 95 96 Oximetry O2 Sat by Pulse Oximetry [ Bilateral] 06/21/22 06/21/22 06/21/22 05:45 05:50 05:52 Pulse Rate 74 73 75 Blood Pressure O2 Sat by Pulse 95 96 93 Oximetry O2 Sat by Pulse Oximetry [ Bilateral] 06/21/22 06/21/22 06/21/22 05:55 05:59 06:00 Pulse Rate 74 85 67 Blood Pressure O2 Sat by Pulse 97 93 95 Oximetry O2 Sat by Pulse Oximetry [ Bilateral] 06/21/22 06/21/22 06/21/22 06:05 06:07 06:10 Pulse Rate 73 78 77 Blood Pressure 136/90 O2 Sat by Pulse 93 100 Oximetry O2 Sat by Pulse Oximetry [ Bilateral] 06/21/22 06/21/22 06/21/22 06:13 06:15 06:20 Pulse Rate 82 69 72 Blood Pressure O2 Sat by Pulse 90 99 96 Oximetry O2 Sat by Pulse Oximetry [ Bilateral] 06/21/22 06/21/22 06/21/22 06:25 06:30 06:35 Pulse Rate 80 71 71 Blood Pressure O2 Sat by Pulse 94 98 97 Oximetry O2 Sat by Pulse Oximetry [ Bilateral] 06/21/22 06/21/22 06/21/22 06:37 06:40 06:41 Pulse Rate 71 84 85 Blood Pressure 136/84 O2 Sat by Pulse 98 88 Oximetry O2 Sat by Pulse Oximetry [ Bilateral] 06/21/22 06/21/22 06/21/22 06:45 06:50 06:55 Pulse Rate 74 75 73 Blood Pressure O2 Sat by Pulse 97 98 96 Oximetry O2 Sat by Pulse Oximetry [ Bilateral] 06/21/22 06/21/22 06/21/22 07:00 07:05 07:07 Pulse Rate 76 79 78 Blood Pressure 157/86 O2 Sat by Pulse 96 95 Oximetry O2 Sat by Pulse 98 Oximetry [ Bilateral] 06/21/22 06/21/22 06/21/22 07:10 07:11 07:15 Pulse Rate 75 77 74 Blood Pressure O2 Sat by Pulse 95 93 98 Oximetry O2 Sat by Pulse Oximetry [ Bilateral] 06/21/22 06/21/22 06/21/22 07:17 07:20 07:22 Pulse Rate 75 71 69 Blood Pressure O2 Sat by Pulse 94 97 94 Oximetry O2 Sat by Pulse Oximetry [ Bilateral] 06/21/22 06/21/22 06/21/22 07:25 07:30 07:35 Pulse Rate 78 73 73 Blood Pressure O2 Sat by Pulse 96 98 96 Oximetry O2 Sat by Pulse Oximetry [ Bilateral] 06/21/22 06/21/22 06/21/22 07:37 07:40 07:42 Pulse Rate 75 71 70 Blood Pressure 147/78 O2 Sat by Pulse 96 94 Oximetry O2 Sat by Pulse Oximetry [ Bilateral] 06/21/22 06/21/22 06/21/22 07:45 07:50 07:55 Pulse Rate 71 78 70 Blood Pressure O2 Sat by Pulse 96 95 98 Oximetry O2 Sat by Pulse Oximetry [ Bilateral] 06/21/22 06/21/22 06/21/22 07:57 08:00 08:03 Pulse Rate 89 80 81 Blood Pressure O2 Sat by Pulse 90 99 89 Oximetry O2 Sat by Pulse Oximetry [ Bilateral] 06/21/22 06/21/22 06/21/22 08:05 08:08 08:10 Pulse Rate 76 85 94 H Blood Pressure 159/72 O2 Sat by Pulse 91 87 Oximetry O2 Sat by Pulse Oximetry [ Bilateral] 06/21/22 06/21/22 06/21/22 08:15 08:17 08:20 Pulse Rate 81 74 73 Blood Pressure O2 Sat by Pulse 94 94 98 Oximetry O2 Sat by Pulse Oximetry [ Bilateral] 06/21/22 06/21/22 06/21/22 08:22 08:25 08:27 Pulse Rate 84 88 74 Blood Pressure O2 Sat by Pulse 90 81 L 94 Oximetry O2 Sat by Pulse Oximetry [ Bilateral] 06/21/22 06/21/22 06/21/22 08:30 08:35 08:40 Pulse Rate 80 78 79 Blood Pressure O2 Sat by Pulse 100 98 99 Oximetry O2 Sat by Pulse Oximetry [ Bilateral] 06/21/22 06/21/22 06/21/22 08:42 08:45 08:50 Pulse Rate 76 78 78 Blood Pressure O2 Sat by Pulse 86 97 97 Oximetry O2 Sat by Pulse Oximetry [ Bilateral] 06/21/22 06/21/22 06/21/22 08:52 08:55 08:58 Pulse Rate 76 79 80 Blood Pressure O2 Sat by Pulse 89 99 93 Oximetry O2 Sat by Pulse Oximetry [ Bilateral] 06/21/22 06/21/22 06/21/22 09:00 09:03 10:07 Pulse Rate 77 88 48 L Blood Pressure O2 Sat by Pulse 89 91 93 Oximetry O2 Sat by Pulse Oximetry [ Bilateral] 06/21/22 06/21/22 06/21/22 10:09 10:12 10:17 Pulse Rate 86 86 98 H Blood Pressure 129/93 O2 Sat by Pulse 100 99 Oximetry O2 Sat by Pulse Oximetry [ Bilateral] 06/21/22 06/21/22 06/21/22 10:22 10:27 10:32 Pulse Rate 95 H 96 H 101 H Blood Pressure O2 Sat by Pulse 99 98 98 Oximetry O2 Sat by Pulse Oximetry [ Bilateral] 06/21/22 06/21/22 06/21/22 10:37 10:39 12:09 Pulse Rate 93 H 96 H 87 Blood Pressure 135/71 O2 Sat by Pulse 98 90 Oximetry O2 Sat by Pulse Oximetry [ Bilateral] General appearance: Present: no acute distress (sitting in chair) - Neck Neck: normal ROM - Respiratory Respiratory effort: normal - Breasts Breasts: deferred - Cardiovascular Rhythm: regular Extremities: No edema - Gastrointestinal General gastrointestinal: Present: soft, non-tender - Genitourinary Female genitourinary: other (fundus non-tender, 1cm below umbilicus and lochia small; incision with dermabond) - Integumentary Integumentary: warm, dry - Neurologic Neurologic: moves all extremities - Psychiatric Psychiatric: cooperative - Labs CBC & Chem 7: 06/21/22 01:50 06/20/22 18:48 Labs: Abnormal lab results 06/20/22 06/20/22 06/21/22 Range/Units 18:48 18:48 01:50 WBC 15.1 H (4.5-11.0) K/mm3 RBC 3.09 L (3.65-5.03) M/mm3 Hgb 10.0 L 9.5 L (10.1-14.3) gm/dl Hct 28.8 L (30.3-42.9) % MCV 99 H (79-97) fl RDW 12.1 L (13.2-15.2) % Uric Acid 3.2 L (3.5-7.6) mg/dL AST 82 H (5-40) units/L ALT 147 H (7-56) units/L Lactate Dehydrogenase 292 H (91-180) units/L Medications & Allergies - Medications Allergies/Adverse Reactions: Allergies No Known Allergies Allergy (Verified 06/16/22 13:37) Home Medications: Home Medications Medication Instructions Recorded Confirmed Last Taken Type Aspirin 81 mg PO DAILY 06/16/22 06/16/22 06/16/22 History 81 MG Tablet 1 tab PO DAILY 06/16/22 06/16/22 06/16/22 History 1 TAB Vitamin D3 1 tab PO DAILY 06/16/22 06/16/22 Unknown History Active Medications: Generic Name Dose Route Start Last Admin Trade Name Freq PRN Reason Stop Dose Admin Acetaminophen 500 mg 06/20/22 23:04 Acetaminophen 500 Mg Tab PO Q4H PRN Pain, Mild (1-3) Hydrocodone Bitart/Acetaminophen 1 each 06/20/22 23:04 06/20/22 23:13 Hydrocodone/Acetaminophen 5-325 Mg Tab PO 06/23/22 23:59 1 each Q4H PRN Administration Pain, Moderate (4-6) Hydrocodone Bitart/Acetaminophen 2 each 06/20/22 23:02 06/21/22 09:46 Hydrocodone/Acetaminophen 5-325 Mg Tab PO 2 each Q6H PRN Administration Pain , Severe (7-10) Magnesium Sulfate 2 gm in 50 mls @ 0 mls/hr 06/20/22 15:00 Magnesium Sulfate 2gm/50ml IV DIRECT DARY As Directed Lactated Ringer's 1,000 mls @ 75 mls/hr 06/21/22 05:45 Lactated Ringers IV DIRECT DARY Multi-Ingredient Ointment 1 applic 06/20/22 14:30 Lanolin/Zinc/Dimethicone (Lansinoh) 7 Gm TP PRN PRN dryness/cracking Naloxone HCl 0.1 mg 06/20/22 14:30 Naloxone 0.4 Mg/1 Ml Inj IV Q2MIN PRN Res Rate </= 8 or 02 SAT < 92% Ondansetron HCl 4 mg 06/20/22 14:04 Ondansetron 4 Mg/2 Ml Inj IV 06/23/22 23:59 Q8H PRN Nausea And Vomiting Sodium Chloride 10 ml 06/20/22 14:00 Sodium Chloride 0.9% 10 Ml Flush Syringe IV 07/03/22 13:59 PRN NR
[2022-06-21] MEDS ORDERED: MAGNESIUM SULFATE 4 GM/100 ML BAG IV ONE (16:11)
[2022-06-21 17:33] LABS: Hematocrit 27.9 % (30.3-42.9); Hemoglobin 9.4 gm/dl (10.1-14.3); Mean Corpuscular HGB Conc 34 % (30-34); Mean Corpuscular Volume 100 fl (79-97); Platelet Count 249 K/mm3 (140-440); Red Blood Count 2.79 M/mm3 (3.65-5.03); Red Cell Distribution Width 12.4 % (13.2-15.2)
[2022-06-21 17:54] LABS: Alanine Aminotransferase 160 units/L (7-56); Uric Acid 3.9 mg/dL (3.5-7.6)
[2022-06-22] MEDS ORDERED: TETANUS,DIPH,PERTUSS(ACELL) VACCINE 0.5 ML SYRINGE IM ONE (06:00)
[2022-06-22] MEDS: HYDROcodone/ACETAMINOPHEN 5-325 MG TAB PO PRN ×3 (07:31→18:22)
[2022-06-22] MEDS ORDERED: PRENATAL PO SCH (10:00)
[2022-06-22] MEDS: PRENATAL VIT27-FE FUMARATE-FOLIC ACID VIT TAB PO SCH (10:06)
--- NOTE | 2022-06-22 13:13 | Progress Note ---
Assessment and Plan A: POD #2 Preeclampsia Asymptomatic Anemia P: Follow Routine PostOp Orders Continue FESO4 as ordered Subjective - Subjective Date of service: 06/22/22 Principal diagnosis: POD#1 C/S with preeclampsia Patient reports: appetite normal, voiding normally, pain well controlled, flatus, ambulating normally, other (Denies HAS, visual changes, N&V, and epigastic pain) [place]: in NICU, bottle feeding (and (pump at bedside)) Objective - Vital Signs Latest vital signs: Vital Signs Temp Pulse Resp BP BP Pulse Ox Pulse Ox 06/22/22 07:54 99.3 F 73 20 127/76 98 06/22/22 07:38 98 06/22/22 00:27 98.5 F 81 20 126/58 97 06/21/22 23:08 18 06/21/22 22:08 20 06/21/22 21:22 18 06/21/22 20:22 18 06/21/22 20:00 100 06/21/22 19:40 98.9 F 84 20 124/63 97 06/21/22 15:50 98.2 F 86 18 147/63 100 Intake and Output 06/21/22 06/22/22 06/22/22 22:59 06:59 14:59 Intake Total 120 240 120 Output Total 1200 600 Balance -1080 -360 120 Intake: Oral 120 120 Intake, Free Water 240 Output: Urine 1200 600 Indwelling Catheter 800 Void 400 600 Other: Total, Intake Amount 120 120 Total, Output Amount 400 300 # Voids Void 1 1 - Exam Breasts: Present: normal Cardiovascular: Present: Regular rate Lungs: Present: Clear to auscultation, Normal air movement Abdomen: Present: normal appearance, soft, normal bowel sounds Uterus: Present: normal, firm, fundal height below umbilicus Extremities: Present: normal Incision: Present: normal, dry, intact - Labs Labs: Abnormal lab results 06/21/22 06/21/22 Range/Units 17:09 17:09 WBC 13.1 H (4.5-11.0) K/mm3 RBC 2.79 L (3.65-5.03) M/mm3 Hgb 9.4 L (10.1-14.3) gm/dl Hct 27.9 L (30.3-42.9) % MCV 100 H (79-97) fl MCH 34 H (28-32) pg RDW 12.4 L (13.2-15.2) % AST 79 H (5-40) units/L ALT 160 H (7-56) units/L Lactate Dehydrogenase 285 H (91-180) units/L
[2022-06-22] MEDS ORDERED: MAGNESIUM HYDROXIDE (MOM) ORAL LIQD UDC PO PRN (19:47)
[2022-06-23] MEDS: PRENATAL VIT27-FE FUMARATE-FOLIC ACID VIT TAB PO SCH (09:52)
[2022-06-23] MEDS ORDERED: FERROUS SULFATE 325 MG TAB PO SCH (10:00)
[2022-06-23] MEDS ORDERED: FERROUS SULFATE 300 MG (60MG Elemental Iron) / 5 mL ORAL LIQD PO SCH (10:00)
[2022-06-23 10:15] LABS: Basophils % (Auto) 0.2 % (0.0-1.8); Eosinophils # (Auto) 0.3 K/mm3 (0.0-0.4); Eosinophils % (Auto) 2.9 % (0.0-4.3); Hematocrit 25.7 % (30.3-42.9); Hemoglobin 8.5 gm/dl (10.1-14.3); Lymphocytes # (Auto) 2.9 K/mm3 (1.2-5.4); Lymphocytes % (Auto) 28.4 % (13.4-35.0); Mean Corpuscular HGB Conc 33 % (30-34); Mean Corpuscular Volume 100 fl (79-97); Monocytes # (Auto) 0.8 K/mm3 (0.0-0.8); Monocytes % (Auto) 8.1 % (0.0-7.3); Platelet Count 251 K/mm3 (140-440); Red Blood Count 2.58 M/mm3 (3.65-5.03); Red Cell Distribution Width 12.7 % (13.2-15.2)
[2022-06-23 10:34] LABS: Alanine Aminotransferase 78 units/L (7-56); Albumin 3.6 g/dL (3.9-5); Blood Urea Nitrogen 8 mg/dL (7-17); Calcium 9.1 mg/dL (8.4-10.2); Hemolysis Index 8
[2022-06-23 10:39] LABS: BUN/Creatinine Ratio 13
--- NOTE | 2022-06-23 18:32 | Progress Note ---
Assessment and Plan A: POD#3-stable P: Discharge home today Discharge instructions given Subjective - Subjective Principal diagnosis: POD#3 C/S with preeclampsia Interval history: See CC Patient reports: appetite normal : in NICU Objective - Vital Signs Latest vital signs: Vital Signs Temp Pulse Resp BP Pulse Ox Pulse Ox 06/23/22 09:35 98.6 F 93 H 18 131/71 99 06/23/22 05:36 76 20 130/68 98 06/23/22 00:29 98.6 F 99 H 20 125/64 97 06/22/22 20:26 92 H 20 121/68 99 06/22/22 20:00 100 06/22/22 19:22 18 06/22/22 18:44 99.6 F 101 H 20 140/65 98 Intake and Output 06/23/22 06/23/22 06/23/22 06:59 14:59 22:59 Intake Total 480 Balance 480 Intake: Oral 480 Other: Total, Intake Amount 120 # Voids Void 1 - Exam Breasts: Present: deferred Cardiovascular: Present: Regular rate Lungs: Present: Clear to auscultation Abdomen: Present: soft Vulva: both: normal Uterus: Present: fundal height below umbilicus Deep Tendon Reflex Grade: Normal +2 - Labs Labs: Abnormal lab results 06/23/22 06/23/22 Range/Units 09:46 09:46 RBC 2.58 L (3.65-5.03) M/mm3 Hgb 8.5 L (10.1-14.3) gm/dl Hct 25.7 L (30.3-42.9) % MCV 100 H (79-97) fl MCH 33 H (28-32) pg RDW 12.7 L (13.2-15.2) % [place] % (Auto) 8.1 H (0.0-7.3) % ALT 78 H (7-56) units/L Total Protein 5.7 L (6.3-8.2) g/dL Albumin 3.6 L (3.9-5) g/dL
--- NOTE | 2022-06-23 18:37 | Discharge Summary ---
Providers - Providers Date of Admission: 06/20/22 13:55 Date of discharge: 06/23/22 Attending physician: RAJESH GASTELUM Primary care physician: RAJESH GASTELUM Hospitalization Reason for admission: other (Severe IUGR, preeclampsia) Delivery: Procedure: section, vertical Discharge diagnosis: delivery baby: male Hospital course: Elevated liver enzymes elevated after delivery now trending down. PLTS 251 Condition at discharge: Good Disposition: 01 HOME / SELF CARE / HOMELESS Plan - Provider Discharge Summary Activity: routine, no sex for 6 weeks, no strenuous exercise Diet: routine Instructions: routine Additional instructions: [] Smoking cessation referral if applicable(refer to patient education folder for contact #) [] Refer to [facility] Booklet Call your doctor immediately for: * Fever > 100.5 * Heavy vaginal bleeding ( >1 pad per hour) * Severe persistent headache * Shortness of breath * Reddened, hot, painful area to leg or breast * Drainage or odor from incision. * Keep incision clean and dry at all times and follow doctor's instructions regarding bathing/showering - Follow up plan Follow up: RAJESH GASTELUM MD [Primary Care Provider] - 10 Days Forms: [facility] Discharge Summary
[2022-06-23 22:02] VITALS: BP 134/82
== END 2022-06-23 22:23 | disposition home or self-care (01) | DRG 765 ==
LOC: TRG 12:09 → LD 12:36 → TRG 12:43 → UNDOADMIN 12:47 → LD 12:47 → OB 06-21 15:43 → LD 06-21 15:43
PROVIDERS: ADMIT Obstetrics & Gynecology; ATTEND Obstetrics & Gynecology
PROC: 10D00Z1 Extraction of Products of Conception, Low, Open Approach (ICD-10-PCS; principal; 2022-06-20)
PROC: 3E0T3BZ Introduction of Anesthetic Agent into Peripheral Nerves and Plexi, Percutaneous Approach (ICD-10-PCS; 2022-06-20)
PROC: 3E0234Z Introduction of Serum, Toxoid and Vaccine into Muscle, Percutaneous Approach (ICD-10-PCS; 2022-06-22)
DX: O36.5920 Maternal care for other known or suspected poor fetal growth, second trimester, not applicable or unspecified (principal); O60.12X0 Preterm labor second trimester with preterm delivery second trimester, not applicable or unspecified; O41.02X0 Oligohydramnios, second trimester, not applicable or unspecified; O98.32 Other infections with a predominantly sexual mode of transmission complicating childbirth; Z3A.27 27 weeks gestation of pregnancy; E66.01 Morbid (severe) obesity due to excess calories; Z37.0 Single live birth; Z20.822 Contact with and (suspected) exposure to COVID-19; Z23 Encounter for immunization; O99.214 Obesity complicating childbirth; O13.4 Gestational [pregnancy-induced] hypertension without significant proteinuria, complicating childbirth; O32.1XX0 Maternal care for breech presentation, not applicable or unspecified; A60.00 Herpesviral infection of urogenital system, unspecified; O99.62 Diseases of the digestive system complicating childbirth; K21.9 Gastro-esophageal reflux disease without esophagitis; O90.81 Anemia of the puerperium; O14.94 Unspecified pre-eclampsia, complicating childbirth; Z79.82 Long term (current) use of aspirin
CPT/HCPCS: 36415; 76815; 76819; 76820; 80053; 81001; 82565; 83615; 83735; 84112; 84156; 84450; 84460; 84550; 85014; 85018; 85025; 85027; 86592; 86850; 86900; 86901; 88305; 90471; 90715; G0378; J3490; J7121; J0360; J0456; J0690; J0702; J1885; J2370; J2405; J2590; J2765; J3475; J7120; U0003